=== PATIENT | female | born 1950 | race Caucasian/White ===

== ENCOUNTER 2024-06-24 12:04 | Outpatient (AMB) | payer BC, SELFPAY ==
--- NOTE | 2024-06-24 12:08 | MHC.PC.OV ---
Vital Signs 06/24/24 12:12 Height 4 ft 11.45 in Weight 166 lb BMI 33.0 BP 146/82 H Blood Pressure Location Lt brachial Position Sitting Intake Visit Reasons: establish care Vp Scientific Affairs Required: No Accompanied by: Self / Same As Patient Allergies statins Adverse Reaction (Unknown, Uncoded 06/24/24 12:23) unknown Medication List - Last Reconciled 06/24/24 by Emilia Montero MD No Known Home Meds Tobacco use date assessed: 06/24/24 Fall risk assessment: No Falls in past year Last assessed Fall Risk: 06/24/24 Dental Screening Dental Screen Date: 06/24/24 Did you have a dental visit in the last 12 months?: Yes Did you have a dental problem in the last 6 months where you did not have access to dental care?: No Was dental information given to patient?: Patient has dentist HPI HPI Comments History of Present Illness Details This is a 74-year-old female that comes to establish care. She has mild recurrent major depression, anxiety and PTSD but declines having any treatment including counseling. Also has right hearing loss and chronic sinusitis and would like to see ENT. She is obese with a BMI of 33 and was advised to do diet and exercise. Has history of pure hypercholesterolemia but has had side effect with statins and preferred to do diet. Declines mammogram. Had colonoscopy in 2008 and had Cologuard last year which was negative. Up-to-date with vaccines. Has a murmur and will have echocardiogram done. [facility] Surgical History History of cataract surgery Family History Mother No problems noted. Father No problems noted. Brother CAD (coronary artery disease) Sister CHF (congestive heart failure) Social History Housing: House Alcohol intake: current Alcohol intake frequency: 0-2 drinks per day Alcohol type: wine Patient Tobacco Use Status: Never used Tobacco e-Cigarette/Vaping Use: Never Used Second Hand Smoke Exposure: No service: No Current occupational status: retired and disabled Cognitive needs: No Hearing needs: No Vision needs: No Questionnaire PHQ-9 Over the last 2 weeks, how often have you been bothered by any of the following problems? 1. Little interest or pleasure in doing things: several days 2. Feeling down, depressed, or hopeless: more than half the days 3. Trouble falling or staying asleep, or sleeping too much: not at all 4. Feeling tired or having little energy: several days 5. Poor appetite or overeating: not at all 6. Feeling bad about yourself - or that you are a failure or have let yourself or your family down: not at all 7. Trouble concentrating on things, such as reading the newspaper or watching television: not at all 8. Moving or speaking so slowly that other people could have noticed. Or the opposite - being so fidgety or restless that you have been moving around a lot more than usual: not at all 9. Thoughts that you would be better off or of hurting yourself in some way: not at all Total score: 4 Depression Screening Interpretation: Positive Depression Screening Follow-up: Existing condition and Follow-up Visit Requested Depression Screening Done: Yes 61101 - PHQ-9 Billing: Yes Source: Developed by Drs. Aj Madsen, Kiara Irene, Gaurav Butler and colleagues, with an educational mavis from [employer]. Thrive Questionnaire Date Thrive assessed: 06/24/24 I am a: Patient What is your living situation today?: I have a steady place to live Within the past 12 months, did the food you bought not last and you didn't have the money to get more?: Never true Within the past 12 months, did you worry whether your food would run out before you got money to buy more?: Never true Do you have trouble paying for medicines?: No Do you have trouble getting transportation to medical appointments?: No Do you have trouble paying your heating and electricity bill?: No Do you have trouble taking care of your child, family member or friend?: No Do you have trouble with day-to-day activities such as bathing, preparing meals, shopping, managing finances, etc.?: No Are you currently unemployed and looking for a job?: No Are you interested in more education?: No Please select the resources that you would like help with: None Currently or been in a relationship where the following occur: No concerns reported and I choose not to answer THRIVE Score: 0 AUDIT C Alcohol Use Questionnaire (AUDIT-C) 1. How often do you have a drink containing alcohol?: Never Total Score: 0 Score Reviewed/Action Taken: No NELI-7 AMB Questionnaire NELI-7 Date NELI - 7 assessed: 06/24/24 Feeling nervous, anxious, or on edge: 1 = Several days Not being able to stop or control worryin = Not at all Worrying too much about different things: 1 = Several days Trouble relaxin = Not at all Being so restless that it is hard to sit still: 0 = Not at all Becoming easily annoyed or irritable: 0 = Not at all Feeling afraid as if something awful might happen: 0 = Not at all Total NELI-7 score (0-4 normal; 5-9 mild; 10-14 moderate; 15-21 severe): 2 Source: Developed by Drs. Aj Madsen, Kiara Irene, Gaurav Butler and colleagues, with an educational mavis from [employer]. NELI-7 Assessment Billing NELI-7 Assessment Tool: NELI-7 Assessment 28480 Review of Systems Const All systems reviewed & are unremarkable except as noted in HPI and below Card Denies chest pain at rest, Denies chest pain with activity, Denies edema, Denies irregular heart rhythm, Denies claudication, Denies dyspnea, Denies dyspnea on exertion, Denies orthopnea, Denies paroxysmal nocturnal dyspnea and Denies slow heart rate Resp Denies cough, Denies dyspnea and Denies dyspnea on exertion GI Denies abdominal pain, Denies change in bowel habits, Denies excessive flatus, Denies nausea and Denies vomiting Denies urinary incontinence, Denies urinary hesitancy and Denies urinary urgency Musc Denies atrophy, Denies deformity and Denies limited range of motion Skin/Breast Denies bleeding lesions, Denies changing lesions and Denies rash Physical exam (Primary Care) Vital Signs: Last Vital Signs BP 146/82 H 06/24/24 12:12 BMI result Body Mass Index 33.0 BMI Assessment/Plan discussion: High BMI High, discussed plan: lifestyle, weight reduction, dietary and physical activity Tobacco/Smoking Status: Tobacco use Status Tobacco use date assessed 06/24/24 06/24/24 12:20 Patient Tobacco Use Status Never used Tobacco 06/24/24 12:20 e-Cigarette/Vaping Use Never Used 06/24/24 12:20 PHQ-9: PHQ-9 Score PHQ-9: Total score 4 06/24/24 12:20 Depression Screening Interpretation: Positive Depression Screening Follow-up: Existing condition and Follow-up Visit Requested Thrive Assessment: Date of Thrive Assessment Date Thrive assessed 06/24/24 06/24/24 12:20 Currently or been in a relationship where the following occur: No concerns reported and I choose not to answer Resp Effort & Inspection: normal respiratory effort Auscultation: clear to auscultation bilaterally Cardio Jugular venous distension: no JVD Rate: regular rate Rhythm: regular rhythm Heart sounds: S1 normal heart sound present and S2 normal heart sound present Extrem General: Yes full ROM Coding Level of Care Code New Pt Level 4 (71087) Complex EM visit Add On G2211 Diagnoses Murmur R01.1 Chronic sinusitis J32.9 Hearing loss, right H91.91 NELI (generalized anxiety disorder) F41.1 Mild recurrent major depression F33.0 PTSD (post-traumatic stress disorder) F43.10 Pure hypercholesterolemia E78.00 Additional Codes PHQ-9 - 87000 - PHQ-9 Billing: Yes ([id number]) NELI-7 Assessment Billing - NELI-7 Assessment Tool: NELI-7 Assessment 94273 ([id number]) Time Spent (min) 25 Assessment & Plan Assessment & Plan (1) Murmur: Code(s): R01.1 - Cardiac murmur, unspecified Category: Medical (2) Chronic sinusitis: Code(s): J32.9 - Chronic sinusitis, unspecified Category: Medical (3) Hearing loss, right: Code(s): H91.91 - Unspecified hearing loss, right ear Category: Medical (4) NELI (generalized anxiety disorder): Code(s): F41.1 - Generalized anxiety disorder Category: Medical (5) Mild recurrent major depression: Code(s): F33.0 - Major depressive disorder, recurrent, mild Category: Medical (6) PTSD (post-traumatic stress disorder): Code(s): F43.10 - Post-traumatic stress disorder, unspecified Category: Medical (7) Pure hypercholesterolemia: Code(s): E78.00 - Pure hypercholesterolemia, unspecified Category: Medical Plan Fasting labs ordered to check cholesterol. DEXA scan order to rule out osteoporosis. Echocardiogram ordered for the murmur. Referred to ENT due to chronic sinusitis. Orders: Orders XR DEXA axial skeleton Today Z78.0 - Asymptomatic menopausal state Comprehensive [place]. Panel Fast Today E78.00 - Pure hypercholesterolemia, unspecified Lipid Panel Today E78.00 - Pure hypercholesterolemia, unspecified, E78.5 - Hyperlipidemia, unspecified CA echo transthoracic complete Today R01.1 - Cardiac murmur, unspecified Referrals Ear/Nose/Throat Referral H91.91 - Unspecified hearing loss, right ear, J32.9 - Chronic sinusitis, unspecified
[2024-06-24 12:12] VITALS: BP 146/82; BMI 33.0
--- OUTSIDE RECORDS SUMMARY | 2024-06-24 12:40 | XMS_ITS | Clinical Summary ---
Author Organization [facility] Address [address] [place] [address] Care Team Providers Care Product Marketing Programs Manager Name Role Phone Renita Song DO Primary Care Provider [phone] Allergies Active Allergy Reactions Criticality Noted Date Comments Cottonseed Unknown Ymdhylg-Kzo-Qlw Reductase Inhibitors Dizziness 08/23/2018 Medications aspirin 325 mg tablet PATIENT ON HER OWN TAKES ONE IN AM AND ONE IN PM NEEDED. Active multivitamin (THERAGRAN) tablet Take 1 tablet by mouth daily. 7 Active diclofenac (VOLTAREN) 1% gel diclofenac 1 % topical gel USE DAILY NEEDED Active glucosamine-ch ondroitin 500-400 mg tablet Glucosamine TABS Refills: 0 Active Active ibuprofen (MOTRIN) 800 mg tablet every 8 (eight) hours. Active diclofenac (VOLTAREN) 1% gel USE DAILY NEEDED 2 9 Active FLUAD 6870-1269, 65 YR UP,,PF, injection TO BE ADMINISTERED BY PHARMACIST FOR IMMUNIZATION 0 9 Active ibuprofen (MOTRIN) 800 mg tablet Take 800 mg by mouth 3 times a day. 4 8 Active simvastatin (ZOCOR) 10 mg tablet daily. Active azithromycin (ZITHROMAX) 500 mg tablet daily. Active carbamide peroxide (Debrox) 6.5% otic solution Debrox 6.5 % ear drops INSTILL 5 DROPS INTO AFFECTED EAR(S) BY OTIC ROUTE 2 TIMES PER DAY Active Flowflex COVID-19 Ag Home Test kit REFER TO [employer] INSCRUTIONS INCLUDED IN PACKAGING 2 Active erythromycin (ILOTYCIN) 0.5% ophthalmic ointment erythromycin 5 mg/gram (0.5 %) eye ointment APPLY 1 CM RIBBON INTO THE LOWER CONJUNCTIVAL SAC(S) IN THE AFFECTED EYE(S) BY OPHTHALMIC ROUTE 3 TIMES PER DAY FOR 7 DAYS Active neomycin-polym yxin B-hydrocortiso ne (CORTISPORIN) 3.5-10,000-1 mg/mL-unit/mL- % otic suspension neomycin-polymyxi n-hydrocort 3.5 mg-10,000 unit/mL-1 % ear drops,susp INSTILL 4 DROPS INTO AFFECTED EAR(S) BY OTIC ROUTE 3 TIMES PER DAY Active triamcinolone acetonide (KENALOG) 0.1% cream triamcinolone acetonide 0.1 % topical cream APPLY A THIN LAYER TO THE AFFECTED AREA(S) BY TOPICAL ROUTE 2 TIMES PER DAY Active Active Problems Problem Noted Date Diagnosed Date Cataract, nuclear sclerotic, both eyes 9 Myopia of both eyes with astigmatism and presbyo miguel 08/23/2018 Dry eyes, bilateral 08/23/2018 Left foot pain 05/12/2016 Hammertoe 05/12/2016 Corns and callosities 05/12/2016 History of pain when walking 05/12/2016 Complete tear of right rotator cuff 12/15/2014 Pain in joint of right shoulder 10/13/2014 Tendinitis of right rotator cuff 05/29/2014 Impacted cerumen of right ear 03/18/2013 Chronic rhinitis 03/18/2013 Lower back pain 02/12/2013 Hyperlipidemia 02/12/2013 Depression 02/12/2013 Post-traumatic stress disorder 02/12/2013 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 Immunizations Immunization Administration Dates Next Due COVID-19, Moderna, mRNA, LNP -S, Bivalent Booster, PF 11/17/2021 Covid-19 Monovalent Vaccine, Moderna, mRNA, PF 05/24/2021 Hepatitis A Vaccine, Adult Dosage 07/26/2022, INFLUENZA, SPLIT VIRUS, TRIVALENT, PF 01/27/2015 ,11/21/2013,01/16/2013 Influenza, High Dose Seasona l, Preservative Free 12/04/2018,11/30/2016 Influenza, High Dose Seasona l, Quadrivalent PF 10/26/2021 10/26/2022 Influenza, Injectable, Quadr ivalent Preservative Free 11/07/2020 Influenza, Trivalent, Adjuvanted, PF 03/11/2018 Influenza, Trivalent, MDV, Injectable 12/15/2015 Pneumococcal Polysaccharide Vaccine, 23 Valent 02/03/2015,11/21/2013 Tetanus Toxoid, Reduced Diph theria Toxoid, and Acellular Pertussis Vaccine, Adsorbed 12/30/2021 Zoster Vaccine, Live 09/16/2016 Family History Medical History Relation Name Comments Other Father Family History of cardiac disorder Relation Name Status Comments Father Social History Tobacco Use Types Packs/Day Years Used Date Smoking Tobacco: Never Smokeless Tobacco: Never Tobacco Cessation:Counseling Given: Not Answered Comments:: Alcohol Use Standard Drinks/Week Comments Not Currently 0 (1 standard drink = 0.6 oz pur e alcohol) Comments Unknown Sex and Gender Information Value Date Recorded Sex Assigned at Female 01/02/2022 3:24 PM EST Legal Sex Female 12:06 AM EDT Gender Identity Female 01/02/2022 3:24 PM EST Sexual Orientation Choose not to disclose 2021 3:24 PM EST Occupation Industry Job Start Date Job End Date retired Not on file Not on file Not on file Last Filed Vital Signs Vital Sign Reading Time Taken Comments Blood Pressure 120/64 07/26/2022 1:05 PM EDT Pulse 86 07/26/2022 1:05 PM EDT Temperature 37.1 ??C (98.8 ??F) 07/26/2022 1:05 PM ED T Respiratory Rate 18 07/26/2022 1:05 PM EDT Oxygen Saturation 97% 07/26/2022 1:05 PM EDT Inhaled Oxygen Concentration - - Weight 78.6 kg (173 lb 3.2 oz) 01/03/2022 1:21 P M EST Height 152.4 cm (5') 01/03/2022 1:21 PM EST Body Mass Index 33.83 01/03/2022 1:21 PM EST Plan of Treatment Health Maintenance Due Date Last Done Comments Cologuard 1950 Colon Cancer Screening 1950 Colonoscopy 1950 FOBT / Fit Test 1950 Hepatitis C Screening 1950 Sigmoidoscopy 1950 Mammogram 1990 Osteoporosis Screening 2000 Pneumococcal Vaccine: 50+ Years (2 of 2 - PCV) 02/04/2016 02/03/2015, 11/21/2013 Zoster Vaccines (2 of 3) 11/11/2016 09/16/2016 COVID-19 Vaccine ( season) 2023 11/17/2021, 05/24/2021, 12/17/2020, Additional history exists Alcohol/Substance Use Screening 02/14/2024 Depression Screening and Follow-Up 02/14/2024 Health Care Proxy Review 02/14/2024 Social Drivers of Health Annual Screening 02/14/2024 Influenza Vaccine (Season Ended) 2024 10/26/2021, 11/07/2020, 12/04/2018, Additional history exists RSV Vaccine (60+ years old and patients) (1 - 1-dose 75+ series) 2025 DTaP,Tdap,and Td Vaccines (2 - Td or Tdap) 12/31/2031 12/30/2021 Hepatitis B Vaccines Aged Out No long er eligible based on patient's age to complete this topic Insurance [facility] [employer] Care Teams Product Marketing Programs Manager Relationship Specialty Start Date End Date Renita Song DO PCP - General 09/01/16
--- OUTSIDE RECORDS SUMMARY | 2024-06-24 12:40 | XMS_ITS | Data Portability ---
Author Organization [facility], , [facility] Address [address], [place] Assessment No assessment recorded. Plan of Treatment Reminders Order Date Submit Date Provider Last Modified By Organization Details Last Modified Time Details Appointments None recorded. Lab AST/SGOT (aspartate aminotransf erase), serum or plasma 2022 023 [employer] [facility], [address] [place] [address], [id number], 4 02:19:49 ALT (alanine aminotransf erase), serum or plasma 2022 023 [employer] [facility], [address] [place] [address], [id number], 4 02:19:50 lipid panel, serum 2022 023 [employer] [facility], [address] [place] [address], [id number], 4 02:19:47 urinalysis, complete 2022 023 [employer] [facility], [address] [place] [address], [id number], 4 02:19:52 BMP, serum or plasma 2022 023 [employer] [facility], [address] [place] [address], [id number], 4 02:19:48 CBC w/ auto diff 2022 023 [facility], [address] [facility], [facility], [place], [phone], 4 02:19:51 Referral ophthalmolo gist referral 2022 023 [facility] Not available 4 05:01:34 Procedures None recorded. Surgeries None recorded. Imaging electrocard iogram 2023 024 [facility] In-Office Order, Internal Use Only DO Not Attach Compendium DO Not Attach Compendium, Do Not Delete/merge, [id number] 4 05:01:51 Medication Orders azithromyci n 500 mg tablet 2022 023 [id number], [address] [facility], [place], [address], 3 15:21:25 Patient TargetsNo targets recorded. Patient Instructions Encounter Date Encounter Id Patient Instructions Last Modified By Organization Details Last Modified Time 04/11/2022 [id number] chronic cough: care instructions dtrister Not available 04/11/2022 17:02:18 sore throat: car e instructions dtrister Not available 04/11/2022 17:02:18 Take medications as prescribed.Follow recommended diet.Contact office at [phone] if any problems develop. dtrister Not available 04/11/2022 17:02:22 Renita Santos DO, spend total time of 20 minutes performing the following: preparing to see the patient by review of diagnostic, consultative, imaging findings and or other external records as applicable. Reviewing separately obtained medical history. I explained to patient the nature of reported problems, examination findings including detail risk and benefits of interventions possible treatment(s), care instructions and or goals as indicated above. ,The patient was forewarned about common adverse affects of medications, possible drug and food interactions. Patient was advised to take medications as prescribed. The patient will contact me at [phone] if any symptoms or problems should occur.In the case of significant deterioration of the health contact 911. dtrister Not available 04/11/2022 17:03:01 07/26/2022 [id number] Take medications as prescribed.Follow recommended diet.Contact office at [phone] if any problems develop. dtrister Not available 07/26/2022 15:56:59 Renita Santos DO, spend total time of 20 minutes performing the following: preparing to see the patient by review of diagnostic, consultative, imaging findings and or other external records as applicable. Reviewing separately obtained medical history. I explained to patient the nature of reported problems, examination findings including detail risk and benefits of interventions possible treatment(s), care instructions and or goals as indicated above. ,The patient was forewarned about common adverse affects of medications, possible drug and food interactions. Patient was advised to take medications as prescribed. The patient will contact me at [phone] if any symptoms or problems should occur.In the case of significant deterioration of the health contact 911. dtrister Not available 07/26/2022 15:57:49 09/20/2022 [id number] Take medications as prescribed.Follow recommended diet.Contact office at [phone] if any problems develop. dtrister Not available 09/20/2022 14:59:05 Renita Santos DO, spend total time of 30 minutes performing the following: preparing to see the patient by review of diagnostic, consultative, imaging findings and or other external records as applicable. Reviewing separately obtained medical history. I explained to patient the nature of reported problems, examination findings including detail risk and benefits of interventions possible treatment(s), care instructions and or goals as indicated above. ,The patient was forewarned about common adverse affects of medications, possible drug and food interactions. Patient was advised to take medications as prescribed. The patient will contact me at [phone] if any symptoms or problems should occur.In the case of significant deterioration of the health contact 911. dtrister Not available 09/20/2022 15:04:07 11/22/2022 [id number] reduced vision: care instructions jtrister Not available 11/22/2022 22:24:02 Domingo Santos spent total time of 20 minutes on the date of encounter, which included: Preparing to see the patient (e.g., review of test results); Obtaining and/or reviewing separately obtained history Performing medically appropriate exam and /or evaluation Counseling and educating the patient and or family/caregiver Ordering medications, tests and or procedures Referring and or communicating with other healthcare professionals Documenting clinical information in the health record. Risk and benefits of these interventions were discussed with patient in details.Patient understand all issues discussed during this visit. Patient understand actions advised during this visit:diagnostic tests and options for treatment(s). The patient was forewarned about common adverse effects of medications, possible drug and food interactions. Patient was advised to take medications as prescribed. The patient will contact me at [phone] if any symptoms or problems should occur.In the case of significant deterioration of the health contact 911. jtrister Not available 11/30/2022 10:40:20 04/10/2023 [id number] Take medications as prescribed.Follow recommended diet.Contact office at [phone] if any problems develop. dtrister Not available 04/10/2023 13:38:09 IRenita DO, spend total time of 20 minutes performing the following: preparing to see the patient by review of diagnostic, consultative, imaging findings and or other external records as applicable. Reviewing separately obtained medical history. I explained to patient the nature of reported problems, examination findings including detail risk and benefits of interventions possible treatment(s), care instructions and or goals as indicated above. ,The patient was forewarned about common adverse affects of medications, possible drug and food interactions. Patient was advised to take medications as prescribed. The patient will contact me at [phone] if any symptoms or problems should occur.In the case of significant deterioration of the health contact 911. dtrister Not available 04/10/2023 13:38:41 Reason for Referral White Kid Buffer Referral for Abnormal vision Referring Physician: Domingo Song, Internal Medicine, Encounter Date: 11/22/2022 Results Created Date Observation Date Name Description Value Unit Range Abnormal Flag Note LastModifiedBy Organization Detail LastModifiedTime 03/09/19 24 03/10/2023 LIPID PANEL , STAND JOHNATHAN cholesterol, total 260 mg/dL <200 high Not Available [facility] [address], [place], [address], 03/10/2023 02:19:43 03/09/19 24 03/10/2023 LIPID PANEL , STAND JOHNATHAN HDL cholesterol 63 mg/dL > or = 50 normal Not Available [facility] [place] [facility] [address] [place], [place], [address], 03/10/2023 02:19:43 03/09/19 24 03/10/2023 LIPID PANEL , STAND JOHNATHAN triglyceride s 103 mg/dL <150 normal Not Available [facility] [place] [facility] [address], [place], [address], 03/10/2023 02:19:43 03/09/19 24 03/10/2023 LIPID PANEL , STAND JOHNATHAN LDL-choleste rol 175 mg/dL _(alpesh c) high Refer ence range : <100 Tyra able range <100 mg/dL for prima ry preve ntion ; <70 mg/dL for patie nts with CHD or diabe tic patie nts with > or = 2 CHD risk facto rs. LDL-C is now calcu lated using the Nuvia n-Hop kins calcu tito n, which is a valid ated novel metho d janene lite r accur acy than the Fried sean equat ion in the estim ation of LDL-C . Nuvia BILLINGS et al. VIOLET. 2013; 310(1 9): 2061- 2068 (http ://ed ucati on.Qu Ganesh [employer]. com/f aq/FA Q164) Not Available [facility] [place] [facility] [address] [place], [place], [address], 03/10/2023 02:19:43 03/09/19 24 03/10/2023 LIPID PANEL , STAND JOHNATHAN chol/HDLC ratio 4.1 (calc ) <5.0 normal Not Available [facility] [address], [place], [address], 03/10/2023 02:19:43 03/09/19 24 03/10/2023 LIPID PANEL , STAND JOHNATHAN non HDL cholesterol 197 mg/dL _(alpesh c) <130 high For patie nts with diabe mikki plus 1 major ASCVD risk facto r, treat ing to a non-H DL-C goal of <100 mg/dL (LDL- C of <70 mg/dL ) is consi jose eduardo a quin martines c optio n. Not Available [facility] [place] [facility] [address], [place], [address], 03/10/2023 02:19:43 03/09/1903/10/2023 LIPID PANEL , STAND JOHNATHAN copy(ies) sent to: [facility] N [address] [facility] [place] [phone] Not Available [facility] [place] [facility] [address], [place], [address], 03/10/2023 02:19:43 03/09/19 24 03/10/2023 BASIC METAB OLIC PANEL glucose 88 mg/dL 65-139 normal Non-f astin g refer ence inter rich Not Available [facility] [place] [facility] [address], [place], [address], 03/10/2023 02:19:48 03/09/1903/10/2023 BASIC METAB OLIC PANEL urea nitrogen (BUN) 11 mg/dL 7-25 normal Not Available [facility] [place] [facility] [address], [place], [address], 03/10/2023 02:19:48 03/09/19 24 03/10/2023 BASIC METAB OLIC PANEL creatinine 0.57 mg/dL 0.60-1 .00 low Not Available [facility] [address], [place], [address], 03/10/2023 02:19:48 03/09/19 24 03/10/2023 BASIC METAB OLIC PANEL eGFR 96 mL/mi n/1.7 3m2 > or = 60 normal Not Available [facility] [address], [place], [address], 03/10/2023 02:19:48 03/09/19 24 03/10/2023 BASIC METAB OLIC PANEL BUN/creatini ne ratio 19 (calc ) 6-22 normal Not Available [facility] [address], [place], [address], 03/10/2023 02:19:48 03/09/19 24 03/10/2023 BASIC METAB OLIC PANEL sodium 142 mmol/ L 135-14 6 normal Not Available [facility] [address], [place], [address], 03/10/2023 02:19:48 03/09/19 24 03/10/2023 BASIC METAB OLIC PANEL potassium 4.2 mmol/ L 3.5-5. 3 normal Not Available [facility] [address], [place], [address], 03/10/2023 02:19:48 03/09/19 24 03/10/2023 BASIC METAB OLIC PANEL chloride 102 mmol/ L 98-110 normal Not Available [facility] [address], [place], [address], 03/10/2023 02:19:48 03/09/19 24 03/10/2023 BASIC METAB OLIC PANEL carbon dioxide 33 mmol/ L 20-32 high Not Available [facility] [address], [place], [address], 03/10/2023 02:19:48 03/09/19 24 03/10/2023 BASIC METAB OLIC PANEL calcium 10.0 mg/dL 8.6-10 .4 normal Not Available [facility] [address], [place], [address], 03/10/2023 02:19:48 03/09/19 24 03/10/2023 BASIC METAB OLIC PANEL copy(ies) sent to: [facility] N [address] [place] [phone] Not Available [facility] [address], [place], [address], 03/10/2023 02:19:48 03/09/19 24 03/10/2023 AST AST 16 U/L 10-35 normal Not Available [facility] [address], [place], [address], 03/10/2023 02:19:49 03/09/19 24 03/10/2023 AST copy(ies) sent to: [facility] N [address] [facility] [place] [phone] Not Available [facility] [address], [place], [address], 03/10/2023 02:19:49 03/09/19 24 03/10/2023 ALT ALT 13 U/L 6-29 normal Not Available [facility] [address], [place], [address], 03/10/2023 02:19:50 03/09/19 24 03/10/2023 ALT copy(ies) sent to: [facility] N 200 [facility] [place], [place] [phone] Not Available [facility] [address], [place], [address], 03/10/2023 02:19:50 03/09/19 24 03/10/2023 CBC (INCL UDES DIFF/ PLT) white blood cell count 7.6 thous and/u L 3.8-10 .8 normal Not Available [facility] [address], [place], [address], 03/10/2023 02:19:51 03/09/19 24 03/10/2023 CBC (INCL UDES DIFF/ PLT) red blood cell count 4.29 donald on/uL 3.80-5 .10 normal Not Available [facility] [address], [place], [address], 03/10/2023 02:19:51 03/09/19 24 03/10/2023 CBC (INCL UDES DIFF/ PLT) hemoglobin 13.2 g/dL 11.7-1 5.5 normal Not Available [facility] [address], [place], [address], 03/10/2023 02:19:51 03/09/19 24 03/10/2023 CBC (INCL UDES DIFF/ PLT) hematocrit 38.9 % 35.0-4 5.0 normal Not Available [facility] [address], [place], [address], 03/10/2023 02:19:51 03/09/19 24 03/10/2023 CBC (INCL UDES DIFF/ PLT) MCV 90.7 fL 80.0-1 00.0 normal Not Available [facility] [address], [place], [address], 03/10/2023 02:19:51 03/09/19 24 03/10/2023 CBC (INCL UDES DIFF/ PLT) MCH 30.8 pg 27.0-3 3.0 normal Not Available [facility] [address], [place], [address], 03/10/2023 02:19:51 03/09/19 24 03/10/2023 CBC (INCL UDES DIFF/ PLT) MCHC 33.9 g/dL 32.0-3 6.0 normal Not Available [facility] [address], [place], [address], 03/10/2023 02:19:51 03/09/19 24 03/10/2023 CBC (INCL UDES DIFF/ PLT) RDW 13.0 % 11.0-1 5.0 normal Not Available [facility] [address], [place], [address], 03/10/2023 02:19:51 03/09/19 24 03/10/2023 CBC (INCL UDES DIFF/ PLT) platelet count 318 thous and/u L 140-40 0 normal Not Available [facility] [address], [place], [address], 03/10/2023 02:19:51 03/09/19 24 03/10/2023 CBC (INCL UDES DIFF/ PLT) MPV 10.6 fL 7.5-12 .5 normal Not Available [facility] [address], [place], [address], 03/10/2023 02:19:51 03/09/19 24 03/10/2023 CBC (INCL UDES DIFF/ PLT) absolute neutrophils 4461 cells /uL 1500-7 800 normal Not Available [facility] [address], [place], [address], 03/10/2023 02:19:51 03/09/19 24 03/10/2023 CBC (INCL UDES DIFF/ PLT) absolute lymphocytes 2523 cells /uL 850-39 00 normal Not Available [facility] [address], [place], [address], 03/10/2023 02:19:51 03/09/19 24 03/10/2023 CBC (INCL UDES DIFF/ PLT) absolute monocytes 456 cells /uL 200-95 0 normal Not Available [facility] [place] [facility] [address], [place], [address], 03/10/2023 02:19:51 03/09/19 24 03/10/2023 CBC (INCL UDES DIFF/ PLT) absolute eosinophils 106 cells /uL 15-500 normal Not Available [facility] [place] [facility] [address], [place], [address], 03/10/2023 02:19:51 03/09/19 24 03/10/2023 CBC (INCL UDES DIFF/ PLT) absolute basophils 53 cells /uL 0-200 normal Not Available [facility] [place] [facility] [address], [place], [address], 03/10/2023 02:19:51 03/09/19 24 03/10/2023 CBC (INCL UDES DIFF/ PLT) neutrophils 58.7 % normal Not Available [facility] [place] [facility] [address], [place], [address], 03/10/2023 02:19:51 03/09/19 24 03/10/2023 CBC (INCL UDES DIFF/ PLT) lymphocytes 33.2 % normal Not Available [facility] [place] [facility] [address], [place], [address], 03/10/2023 02:19:51 03/09/19 24 03/10/2023 CBC (INCL UDES DIFF/ PLT) monocytes 6.0 % normal Not Available [facility] [place] [facility] [address], [place], [address], 03/10/2023 02:19:51 03/09/19 24 03/10/2023 CBC (INCL UDES DIFF/ PLT) eosinophils 1.4 % normal Not Available [facility] [place] [facility] [address], [place], [address], 03/10/2023 02:19:51 03/09/19 24 03/10/2023 CBC (INCL UDES DIFF/ PLT) basophils 0.7 % normal Not Available [facility] [place] [facility] [address], [place], [address], 03/10/2023 02:19:51 03/09/19 24 03/10/2023 CBC (INCL UDES DIFF/ PLT) copy(ies) sent to: [facility] [address] [facility] [place] [phone] Not Available [facility] [address], [place], [address], 03/10/2023 02:19:51 03/09/19 24 03/10/2023 URINA LYSIS , COMPL ETE color YELLOW yellow normal Not Available [facility] [address], [place], [address], 03/10/2023 02:19:52 03/09/19 24 03/10/2023 URINA LYSIS , COMPL ETE appearance CLEAR clear normal Not Available [facility] [address], [place], [address], 03/10/2023 02:19:52 03/09/19 24 03/10/2023 URINA LYSIS , COMPL ETE specific gravity 1.016 1.001- 1.035 normal Not Available [facility] [place] [facility] [address], [place], [address], 03/10/2023 02:19:52 03/09/19 24 03/10/2023 URINA LYSIS , COMPL ETE pH 6.0 5.0-8. 0 normal Not Available [facility] [place] [facility] [address], [place], [address], 03/10/2023 02:19:52 03/09/19 24 03/10/2023 URINA LYSIS , COMPL ETE glucose NEGATI VE negati ve normal Not Available [facility] [place] [facility] [address], [place], [address], 03/10/2023 02:19:52 03/09/19 24 03/10/2023 URINA LYSIS , COMPL ETE bilirubin NEGATI VE negati ve normal Not Available [facility] [place] [facility] [address], [place], [address], 03/10/2023 02:19:52 03/09/19 24 03/10/2023 URINA LYSIS , COMPL ETE ketones NEGATI VE negati ve normal Not Available [facility] [place] [facility] [address], [place], [address], 03/10/2023 02:19:52 03/09/19 24 03/10/2023 URINA LYSIS , COMPL ETE occult blood NEGATI VE negati ve normal Not Available [facility] [place] [facility] [address], [place], [address], 03/10/2023 02:19:52 03/09/19 24 03/10/2023 URINA LYSIS , COMPL ETE protein NEGATI VE negati ve normal Not Available [facility] [place] [facility] [address], [place], [address], 03/10/2023 02:19:52 03/09/19 24 03/10/2023 URINA LYSIS , COMPL ETE nitrite NEGATI VE negati ve normal Not Available [facility] [place] [facility] [address], [place], [address], 03/10/2023 02:19:52 03/09/19 24 03/10/2023 URINA LYSIS , COMPL ETE leukocyte esterase NEGATI VE negati ve normal Not Available [facility] [place] [facility] [address], [place], [address], 03/10/2023 02:19:52 03/09/19 24 03/10/2023 URINA LYSIS , COMPL ETE WBC NONE SEEN /hpf < or = 5 normal Not Available [facility] [place] [facility] [address], [place], [address], 03/10/2023 02:19:52 03/09/19 24 03/10/2023 URINA LYSIS , COMPL ETE RBC NONE SEEN /hpf < or = 2 normal Not Available [facility] [place] [facility] [address], [place], [address], 03/10/2023 02:19:52 03/09/19 24 03/10/2023 URINA LYSIS , COMPL ETE squamous epithelial cells NONE SEEN /hpf < or = 5 normal Not Available [facility] [place] [facility] [address], [place], [address], 03/10/2023 02:19:52 03/09/19 24 03/10/2023 URINA LYSIS , COMPL ETE bacteria NONE SEEN /hpf none seen normal Not Available [facility] [place] [facility] [address], [place], [address], 03/10/2023 02:19:52 03/09/19 24 03/10/2023 URINA LYSIS , COMPL ETE hyaline cast NONE SEEN /lpf none seen normal Not Available [facility] [place] [facility] [address], [place], [address], 03/10/2023 02:19:52 03/09/19 24 03/10/2023 URINA LYSIS , COMPL ETE note This urine was felix zed for the prese nce of WBC, RBC, bacte jamie, casts , and other forme d eleme nts. Only those eleme nts seen were repor eleazar. Not Available [facility] [place] [facility] [address], [place], [address], 03/10/2023 02:19:52 03/09/19 24 03/10/2023 URINA LYSIS , COMPL ETE copy(ies) sent to: [facility] [address] [facility] [place] [phone] Not Available [facility] [place] [facility] [address], [place], [address], 03/10/2023 02:19:52 04/08/19 XR, chest , 2 view COMPAR RUDDY: 019 FINDIN GS AND IMPRES AIMEE: No change . Heart normal . Lungs clear. Slight elevat ion left hemidi aphrag m and azygos lobe as before . Otherw ise negati ve. If this radiol ogy report contai ns a blank impres aimee sectio n, it is an incomp lete radiol ogy report . Please contac t the interp reting radiol ogist or applic able radiol ogy divisi on as soon as possib le to obtain the comple eleazar interp retati on. Workst ation ID: [id number] P/here 11:34 [facility] [address] [place] [address] [address], [place], [address], 04/11/2022 16:52:30 04/08/19 23 04/08/2022 imagi ng/di agnos tic resul t No observ ation record ed. [facility] (Xrays Only) [address] [facility], [place], [address], 04/11/2022 16:52:30 04/10/19 24 elect delaney dominguez am No observ ation record ed. dtrister In-Office Order Internal Use Only DO Not Attach Compendium DO Not Attach Compendium, Do Not Delete/merge, [id number] 04/10/2023 13:27:19 04/10/19 24 04/10/2023 huang dominguez am No observ ation record ed. BARCODE Not Available 2023 13:46:51 Result Notes None recorded. 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 Completed 11/07/2018 PERNELL herrera [facility], 9 09:04:11 Transient cerebral ischemia 068542850 Completed 11/07/2018 [facility], 9 09:04:13 Heart murmur 21876984 Completed 11/07/2018 [facility]LL [facility]rera [facility], 9 09:04:26 Disorder of cholesterol metabolism 113937051 Completed 11/07/2018 [facility]LL herrera [facility], 9 09:04:06 Impacted cerumen 26604904 Completed 11/07/2018 PER[facility]LL herrera [facility], 9 09:04:09 Pain of shoulder region 14729560 Completed 11/07/2018 [facility]LL [facility]rera [facility], 9 09:04:22 Adult health examination Completed 201611/07/2018 PERNELL herrera [facility], 9 09:04:15 Mixed hyperlipide matthew [id number] Active 2019 Renita Moiarechiga [facility], 14:22:37 Problem Notes None recorded. Procedures Surgical History Date Name Laterality Status Provider Name and Address Organization Details Recorded Time 04/10/19 24 ECG completed Reid Santanada [facility], 04/10/2023 13:09:53 04/11/19 23 Rapid Strept Test completed [facility], 04/11/2022 17:00:55 12/31/19 22 Tetanus prophylaxis completed [facility], 12/30/2021 17:02:30 12/31/19 22 Intramuscular Injection completed [facility], 12/30/2021 17:02:19 08/24/19 22 ECG completed [facility], 08/23/2021 14:46:53 10/28/19 20 Flu vaccine Flucelvax Quad completed GITA LAND [facility], 10/28/2019 10:08:48 01/28/20 17 Rapid Strept Test completed Brinda Garza [facility], 01/27/2017 13:44:41 12/13/19 17 ECG completed [facility], 12/12/2016 20:06:38 04/22/19 17 PAP smear completed Rose Gillespie [facility], 04/21/2016 13:07:01 12/15/19 16 [facility] 10:38:52 12/15/19 16 Intramuscular Injection completed Shannon [facility], 12/15/2015 10:39:08 02/04/20 15 Pneumonia vaccine completed Aida Franco [facility], 02/03/2015 11:42:36 01/28/20 15 Flu vaccine Flucelvax Quad completed Renita Trister [facility], 01/27/2015 11:38:59 01/28/20 15 Cerumen Removal completed Renita Song [facility], 01/27/2015 11:38:45 12/16/19 09 Date of Last Colonoscopy completed Renita Song [facility], 01/01/2015 15:14:51 Caesarean Section completed Renita Faye r [facility], 01/01/2015 15:03:34 Orthopaedic Surgery completed Renita Song [facility], 01/01/2015 15:03:34 Imaging Results Imaging Date Name Status LastModified by Organization Details LastModified Time 04/08/2022 XR, chest, 2 view completed [facility] [address] [facility] [address], [place], [address], 04/11/2022 16:52:30 04/08/2022 imaging/diagnostic result active [facility] (Xrays Only) [address] [place], [address], 04/11/2022 16:52:30 04/10/2023 electrocardiogram active [facility] In-Offi ce Order Internal Use Only DO Not Attach Compendium DO Not Attach Compendium, Do Not Delete/merge, [id number] 04/10/2023 13:27:19 04/10/2023 electrocardiogram completed [facility] Informa tion not available 04/10/2023 13:46:51 Procedure Notes None recorded. Medical Equipment None Reported. Allergies Allergen ID Allergen Name Allergen Category Reaction Reaction Severity Criticality Documentation Date Start Date Code Code System Note Provider Name and Address Organization Details Recorded Time 70543 Product containin g 3-hydroxy -3-methyl glutaryl- coenzyme A reductase inhibitor (product) medicatio n Not available Not available Not available 01/27/2015 77690 009 SNOMED Renita Song javier [facility], 5 11:22:22 Medications Name Sig Start Date Stop Date Status Note LastModified by Organization Details LastModified Time Augmentin 875 mg-125 mg tablet Take 1 tablet twice a day by oral route for 7 days. 10/11 completed Not Available Not Available Not Available promethazin e-DM 6.25 mg-15 mg/5 mL oral syrup Take 5 mL every 6 hours by oral route for 15 days. 04/06 completed Not Available Not Available Not Available ibuprofen 800 mg tablet Take 1 tablet 3 times a day by oral route for 30 days. 11/07 completed Not Available Not Available Not Available Lidocaine Viscous 2 % mucosal solution Take 15 mL every 3 hours by oral route for 15 days. 04/06 completed Not Available Not Available Not Available simvastatin 10 mg tablet Take 1 tablet every day by oral route at bedtime for 30 days. 2014 active Not Available Not Available Not Avai lable Debrox 6.5 % ear drops INSTILL 5 DROPS INTO AFFECTED EAR(S) BY OTIC ROUTE 2 TIMES PER DAY 11/07 completed Not Available Not Available Not Available Zithromax 250 mg tablet TAKE 2 TABLETS (500 MG) BY ORAL ROUTE ONCE DAILY FOR 1 DAY THEN 1 TABLET (250 MG) BY ORAL ROUTE ONCE DAILY FOR 4 DAYS 03/03 completed Not Available Not Available Not Available Tylenol Arthritis Pain 650 mg tablet,exte nded release Take 1 tablet every 8 hours by oral route around the clock for 30 days. 04/21 completed Not Available Not Available Not Available penicillin V potassium 500 mg tablet Take 1 tablet 4 times a day by oral route for 10 days. 04/06 completed Not Available Not Available Not Available triamcinolo ne acetonide 0.1 % topical cream APPLY A THIN LAYER TO THE AFFECTED AREA(S) BY TOPICAL ROUTE 2 TIMES PER DAY 04/11 completed Not Available Not Available Not Available Tessalon Perles 100 mg capsule Take 1 capsule 3 times a day by oral route for 15 days. 04/06 completed Not Available Not Available Not Available erythromyci n 5 mg/gram (0.5 %) eye ointment APPLY 1 CM RIBBON INTO THE LOWER CONJUNCTI RICH SAC(S) IN THE AFFECTED EYE(S) BY OPHTHALMI C ROUTE 3 TIMES PER DAY FOR 7 DAYS 12/30 completed Not Available Not Available Not Available neomycin-po lymyxin-hyd rocort 3.5 mg-10,000 unit/mL-1 % ear drops,susp INSTILL 4 DROPS INTO AFFECTED EAR(S) BY OTIC ROUTE 3 TIMES PER DAY 11/07 completed Not Available Not Available Not Available azithromyci n 500 mg tablet Take 1 tablet every day by oral route for 3 days. 11/07 completed Not Available Not Available Not Available Chlorasepti c Throat Spearfish 1.4 % aerosol Take 1 spray by mucous route for 10 days. 04/06 completed Not Available Not Available Not Available diclofenac 1 % topical gel USE DAILY NEEDED 2020 active Not Available Not Available Not Alfredai whitney [facility] 10 billion cell-200 mg chewable tablet Take as directed on package 03/03 completed Not Available Not Available Not Available Vitals Date Recorded Body height Heart rate Body temperature Body mass index (BMI) Body weight Oxygen saturation Oxygen saturation in Arterial blood by Pulse oximetry Systolic blood pressure Diastolic blood pressure Provider Name and Address Organization Details Last Updated DateTime 3 149.86 cm 93 /min 98 [degF] 34.3 kg/m2 22105.3 4 g 94 % 94 % 130 mm[Hg] 74 mm[Hg] LAURA KAUFMAN [facility], 3 16:32:37 Date Recorded Body height Heart rate Body temperature Body mass index (BMI) Body weight Oxygen saturation Oxygen saturation in Arterial blood by Pulse oximetry Systolic blood pressure Diastolic blood pressure Provider Name and Address Organization Details Last Updated DateTime 3 149.86 cm 91 /min 97.4 [degF] 33.9 kg/m2 91579.5 2 g 97 % 97 % 138 mm[Hg] 92 mm[Hg] CRIS WU [facility], 3 15:19:10 Date Recorded Body height Heart rate Body temperature Body mass index (BMI) Body weight Oxygen saturation Oxygen saturation in Arterial blood by Pulse oximetry Systolic blood pressure Diastolic blood pressure Provider Name and Address Organization Details Last Updated DateTime 3 149.86 cm 87 /min 98.2 [degF] 33.4 kg/m2 39864.4 6 g 98 % 98 % 142 mm[Hg] 88 mm[Hg] CRIS WU [facility], 3 14:36:32 Date Recorded Systolic blood pressure Diastolic blood pressure Provider Name and Address Organization Details Last Updated DateTime 09/20/2022 120 mm[Hg] 70 mm[Hg] Renita Song [facility], 09/20/2022 15:04:37 Date Recorded Body height Heart rate Body temperature Body mass index (BMI) Body weight Oxygen saturation Oxygen saturation in Arterial blood by Pulse oximetry Systolic blood pressure Diastolic blood pressure Provider Name and Address Organization Details Last Updated DateTime 3 149.86 cm 81 /min 98 [degF] 33.1 kg/m2 14202.1 5 g 99 % 99 % 130 mm[Hg] 80 mm[Hg] LAURA RODRIGUEZDONADO [facility], 3 11:04:48 Date Recorded Body height Heart rate Body temperature Body mass index (BMI) Body weight Oxygen saturation Oxygen saturation in Arterial blood by Pulse oximetry Systolic blood pressure Diastolic blood pressure Provider Name and Address Organization Details Last Updated DateTime 4 149.86 cm 99 /min 98.1 [degF] 33.5 kg/m2 41409.3 3 g 97 % 97 % 132 mm[Hg] 80 mm[Hg] Reid Hernandezzada [facility], 4 13:09:26 Social History Question Answer Notes LastModified by Organizat ion Details LastModified Time Tobacco Smoking Status Never Smoker Not Available [facility] 11/29/2019 03:10:44 Have You Been To An Area Known To Be High Risk For COVID-19? No Information not available 06/01/2020 HAVE YOU HAD A RECENT FEVER OF >100.4 F No Information not available 06/01/2020 DO YOU HAVE SHORTNESS OF BREATH OR TROUBLE BREATHING No Information not available 06/01/2020 DO YOU HAVE DRY COUGH, RUNNY NOSE OR SORE THROAT No Information not available 06/01/2020 DO YOU HAVE CHILLS? No Information not available 06/01/2020 DO YOU HAVE MUSCLE PAIN, BODY ACHES? No Information not available 06/01/2020 DO YOU HAVE HEADACHE? No Information not available 06/01/2020 HAVE YOU RECENTLY LOST SENSE OF SMELL OR TASTE No Information not available 06/01/2020 DO YOU HAVE ONSET OF NAUSEA OR VOMITING? No Information not available 06/01/2020 HAVE YOU BEEN IN CONTACT WITH SOMEONE THAT TESTED POSITIVE FOR COVID19? No Information not available 06/01/2020 ARE YOU AWAITING COVID19 TEST RESULTS? No Information not available 06/01/2020 HAVE YOU TRAVELED OUTSIDE THE STATE OR COUNTRY IN THE PAST WEEKS? No Information not available 06/01/2020 Marital Status Informatio n not available 01/01/2015 What Was The Date Of Your Most Recent Tobacco Screening? 04/10/2023 Information not available 04/10/2023 How Many Children Do You Have? 1 [id number] Information not available 11/29/2019 How Much Tobacco Do You Smoke? No [id number] Information not available 11/29/2019 Sex: Female Functional Status Question Answer Note LastModified by Organizat ion Details LastModified Time What is your level of alcohol consumption? Moderate [id number] Information not available 11/29/2019 Do you or have you ever used smokeless tobacco? Never used smokeless tobacco [id number] Information not available 11/29/2019 What is your occupation? disability PTSD, arthriti s. [id number] Information not available 11/29/2019 Mental Status None recorded. Family History Relationship Description Onset Age of this Age Resolved Age Notes LastModified by Organization Details LastModified Time Maternal Grandmother Coronary arterioscler osis [email or web address] Not available 2014 13:04:09 Father Coronary artery bypass grafts x 4 [email or web address] Not available 02/04 13:04:09 Father Heart failure 98 [email or web address] Not available 2016 10:41:59 Brother Coronary artery bypass grafts x 5 jtrister Not available 02/04 13:04:09 Sister Cerebrovascu lar accident dtrister Not available 10:40:43 Sister Myocardial infarction 71 [email or web address] Not available 04/18 11:04:40 Son Viral hepatitis C dtrister Not available 10/2019 13:12:12 Mother Dementia 96 dtrister Not available 08/23/2021 14:15:49 Medical History Condition Response Coronary Artery Disease N Gout N Metabolic Syndrome N Bipolar disorder N Hyperthyroidism N Hyperipidemia N Hypothyroidism N Lung Disease N Depression N COPD N Pneumonia N Myofascial pain syndrome N TIA N Diabetes Mellutus type 1 N TMJ OA N Tobacco dependence N Headache (Migraines) N Knee OA N Alcoholism N Food sensitivity and intollerance N Valvular heart disease N Obesity N Cholecystitis N Diabetes Mellitus Type 2 N Cancer N Shoulder OA N Feet OA N Substance dependence N Skin disorder N Hepatitis alcoholic N Rheumatoid Arthritis N Hip OA N Schizophrenia N Fibromyalgia N Atrial fibrillation N Inflammatory bowel disease N Allergies/Hayfever N DVT/PE N Skin Infection N Heart Conditions N Anxiety N Hepatitis A N Somatic dysfunction N Back pain (lumbar OA) N Gluten sensitivity N Headache (Tension) N Acne N Hypertriglyceridemia N Lyme disease N Hepatitis C N Anemia N Anemia B-12 defficiency N Back pain (thoracic OA) N Venous insufficiency N Heart Attack ([place]) N Radiculopathy N Dyspepsia N Bleeding Disorder N CHF N Seizures/Epilepsy N Joints replacement N Ankle OA N Fingers OA N BPH N Wrist OA N Somatization N Carpal tunnel Syndrome N Urinary Tract Infection N CVA N Diverticulitis N Asthma N Hepatitis B N Neck (Cervical) OA N Peripheral Vascular Disease N Elbow joint pain N Sleep Disorder N GERD/Reflux N Neuropathy N Pulmonary Embolism N Peptic Ulcer disease N Hypertension N Osteoporosis N Gynecological History Statement/Question Response If Post Menopausal, Age at Menopause 46 Date of Last Colonoscopy 12/15/2008 Most Recent Mammogram Obstetrics History GPAL:G 0 P 0 0 0 0 Immunizations Vaccine Type Date Status Note Provider Nam e and Address Organization Details Recorded Time Influenza, split virus, trivalent, preservative 6 completed Not Available [facility] 03/02/2019 02:13:51 Tdap 2 completed Renita herrera [facility], 12/30/2021 16:53:58 Past Encounters Encounter ID Performer Location Encounter Start Date Encounter Closed Date Diagnosis/Indication Diagnosis SNOMED-CT Code Diagnosis ICD10 Code Diagnosis Note [id number] Renita Song DO [address] [address] 01/01/2015 14:43:12 01/01/2015 15:46:24 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 Disorder o f rotator cuff 795105674 M75.81 Low back pain 646883793 M54.5 Posttrauma tic stress disorder 22687634 F43.10 Transient cerebral ischemia 320221164 G45.9 Adult heal th examination 196485746 Z00.01 Heart murmur 32219743 R0 1.1 [id number] Renita Song DO [address] [address] 01/27/2015 10:39:12 01/27/2015 11:57:49 Disorder of cholesterol metabolism 258053616 E78.70 Impacted cerumen 9209170 6 H61.21 Administra tion of influenza vaccine 33045755 Z23 [facility] 70031318 M25.511 [id number] Renita Song [address] [address] 02/03/2015 11:05:17 02/03/2015 11:53:28 Active or passive immunization 549009408 Z23 [id number] [address] 12/15/2015 10:30:19 12/15/2015 10:40:41 Needs influenza immunization 814566039 Z23 [id number] Shu Salamanca NP [facility] [address] [place] [address] 02/12/2016 12:54:14 02/12/2016 14:05:29 Cough 05030446 R05 Upper resp iratory infection 76149361 J06.9 Diarrhea 62880680 R19.7 [id number] Shannon [address] [address] 03/03/2016 10:20:15 03/03/2016 10:59:19 Verruca vulgaris 04095174 B07.9 Foot pain 34787261 M79.6 72 see above, pain due to warts [id number] Renita Song DO [address] [address] 03/31/2016 10:25:37 03/31/2016 11:21:23 Adult health examination 123259360 Z00.00 declined mammo and colonoscop y Verruca plantaris 508120 08 B07.0 [id number] Shu Salamanca, [employer] [facility] [address] [place] [address] 04/21/2016 12:56:56 04/21/2016 13:32:35 Screening for malignant neoplasm of cervix 292385469 Z12.4 Gynecologi c examination 34767469 Z01.419 [id number] Renita Song DO [address] [address] 12/12/2016 11:24:28 12/12/2016 12:37:34 Chest pain 54206489 R07.9 Costal chondritis 024685 04 M94.0 [id number] Shannon Webb [address] [address] 01/27/2017 13:22:00 01/27/2017 13:54:26 Streptococcal sore throat 79667934 J02.0 [id number] Shannon Webb [address] [address] 02/10/2017 09:59:45 02/10/2017 11:10:34 Cough 76999982 R05 Stomatitis 98386203 K12. 1 follow up the dentist for oral exam, Dr sloan, [place] 9 [id number] Renita Song DO [address] [address] 04/06/2017 09:27:18 04/06/2017 10:50:03 Adult health examination 370584758 Z00.00 declined mammo and colonoscop y Depression screening 171 038982 Z13.89 Depressive disorder 3548 9007 F32.9 [id number] Renita Song [address] [address] 2018 10:51:16 2018 12:11:35 Adult health examination 319184486 Z00.00 declined mammo and colonoscop y Cataract 100354630 H26.9 Hearing loss 36043084 H9 1.90 [id number] Renita Song [address] [address] 10/01/2018 15:30:42 10/01/2018 16:00:51 Acute otitis media 7528355 H66.92 [id number] Renita Song DO [address] [address] 10/11/2018 10:25:33 10/11/2018 11:38:02 Acute otitis media 7441101 H66.92 Acute otitis externa 302 36881 H60.501 [id number] Domingo Song MD [address] [address] 10/22/2018 07:53:11 10/22/2018 08:20:17 Hearing loss 62830800 H91.91 Pain in throat 698805569 R07.0 [id number] Domingo Song MD [address] [address] 11/07/2018 09:00:29 11/07/2018 09:50:04 Traumatic effusion of joint of knee 057718586 M25.462 Contusion of chest 61183 004 S20.211A Contusion of finger of left hand 3240912339 9186161 S60.022A Shoulder joint pain 2679 13908 M25.519 [id number] Renitapresley PraterDO bill [address] [address] 04/22/2019 12:34:49 04/22/2019 16:00:13 Pain of right shoulder joint 6906352797 1500969 M25.511 Adult heal th examination 975150611 Z00.00 declined mammo and colonoscop y [id number] Renita Song [address] [address] 09/30/2019 13:42:30 10/09/2019 14:17:12 Mixed hyperlipidemia 242748037 E78.2 [id number] JONAH SANCHEZ [facility] [address] [place] [address] 10/28/2019 09:48:33 10/28/2019 10:00:41 Needs influenza immunization 777137885 Z23 [id number] JONAH SANCHEZ [facility] [address] [place] [address] 11/27/2019 16:00:31 11/29/2019 14:07:53 Blepharitis 79029060 H01.9 Most likely blephariti s. Will use erythromyc in ointment and follow up should this not resolve in 7 days. Educated pt about medication , side effects and DDIs. Did offer ophthalmol ogy referral but patient declined. [id number] Renita Song DO [place] [address] 04/27/2020 11:03:05 04/27/2020 11:35:50 Adult health examination 137821676 Z00.00 Chronic dermatitis 55700 007 L30.9 chronci unstable progressiv e [id number] JONAH SANCHEZ [address] [address] 06/01/2020 09:24:41 06/01/2020 09:56:34 Supraclavicular lymphadenopathy 679831937 R59.0 Acute, most likely due to immune response from COVID vaccine as this is listed as a side effect. However will order labs in conjunctio n with CBC, CMP from physical to ensure no acute abnormalit ies. F/u with US of neck. Educated patient about signs and symptoms in which to seek emergency medical attention or return for care. Emotional upset 60560242 5 R45.89 Acute, due to no sleep, lack of morning routine, nervous about lymphadeno sagar. Elevated BP. Advised to calm down. Will recheck BP at next office visit. Patient asymptomat ic. [id number] Renita Song [address] [address] 08/23/2021 13:03:56 08/23/2021 14:50:42 Adult health examination 751729014 Z00.00 Depressive disorder 3548 9007 F32.9 chronic unstablead vised to go to ER if develops thoughts and plans of self harm [id number] Renita Song DO [address] [address] 12/30/2021 16:06:44 12/30/2021 17:06:19 Requires a hepatitis A vaccination 922631865 Z28.39 Administra tion of diphtheria, pertussis, and tetanus vaccine 378288613 Z23 [id number] Renita Song DO [address] [address] 04/07/2022 08:41:48 04/07/2022 09:21:10 Chronic cough 03191236 R05.3 chronic unstableun like due to bacterial agent [id number] Renita Song DO [address] [address] 04/11/2022 15:52:13 04/11/2022 17:08:25 Acute pharyngitis 867742496 J02.9 acute unstablewa rm salt water gargletyle nol as needed Chronic cough 56232421 R 05.3 chronic stable improved w benzonatat e [id number] Renita PraterbillDO [address] [address] 07/26/2022 15:17:28 07/26/2022 16:13:18 Fracture of distal end of fibula 527177364 S82.891A acute stable improvedpt compliant with home exercises [id number] Renita Song DO [address] [address] 09/20/2022 14:18:13 09/20/2022 15:13:51 Adult health examination 500520941 Z00.00 Mixed hyperlipidemia 267 418750 E78.2 [id number] Domingo Song MD [address] [address] 11/22/2022 10:40:33 11/22/2022 11:49:18 Abnormal vision 2355039 H54.7 [id number] Renita Song DO [address] [address] 04/10/2023 12:37:27 04/10/2023 14:07:02 Cataract of right eye 363987185 H26.9 chronic unstableme dically optimized for surgery Pre-surger y evaluation 382200427 Z01.818 chronic unstableme dically optimized for surgery Health Concerns Section Related Observation LastModified by Organization Detai ls LastModified Time None Recorded Concern Status LastModified by Organization Details LastModified Time None Recorded Advance Directives Directive None Recorded Payers Encounter Date Sequence Insurance Name Policy Number Policy Summers Covered Member ID Summers Member ID Guarantor Name 04/11/2022 1 [facility] (MEDICARE REPLACEMENT/A DVANTAGE - PPO) [id number] Ro C Bal[employer] [id number] [employer] 07/26/2022 1 [facility] (MEDICARE REPLACEMENT/A DVANTAGE - PPO) [id number] Ro C Bal[employer] [id number] Ro C [employer] 09/20/2022 1 [facility] (MEDICARE REPLACEMENT/A DVANTAGE - PPO) [id number] Ro C Balcom [id number] Ro C Bal[employer] 11/22/2022 1 [facility] (MEDICARE REPLACEMENT/A DVANTAGE - PPO) [id number] Ro C Balcom [id number] Ro C Bal[employer] 04/10/2023 1 [facility] (MEDICARE REPLACEMENT/A DVANTAGE - PPO) [id number] Ro C Balcom [id number] [employer] C [employer] Notes Date Note Type Note Provider Name and Address Organization Details Recorded Time 04/11/2022 text/html CoughReported bypatient.Severity:imp roving; moderate Duration:constant; intermittent Timing:better; sudden Context:non-smoker;wor se at night Associated Symptoms:no fever; no chills; no wheezing;post nasal dripThroat PainReported bypatient.Location:[facility] Quality:sharp; aching; sore; stabbing; throbbing Severity:moderate Duration:1 day Onset/Timing:abrupt Aggravating Factors:yelling; talking Associated Symptoms:no stress; no coughing with sputum; no choking; no throat tickle/itch; no globus sensation; no odynophagia; no dysphagia; no burping; no hoarseness; no neck/shoulder muscle tension; no weight loss; no loss of appetite;fever one week ago patient fell down the stairs and hit her head on the buffetno LOC+ headache but mild and infrequent SIERRA Barragan Maria Isabel [facility], 04/11/2022 17:03:47 07/26/2022 text/html pt here to follo w up for a distal fibula fractureortho notes revieweds/p boot, and lace up bracestill reports limited ROM, stiffness and mild paresthesia of the 2,3,4th toes with slight discolorationshe is able to weight bare and ambulate SIERRA Barragan [facility], 07/26/2022 15:58:00 09/20/2022 text/html Annual Wellness VisitReported bypatient.Diet and Nutrition:healthy diet Fracture Risk:no history of fractures; no recent explained fracture; no sudden unexplained fractures; previous musculoskeletal injuries Physical Activity:exercises on a regular basis; recent increase in physical activity; good physical condition Depression Risk:never feels sad, empty, or tearful; no loss of interest in activities; no significant changes in weight; no sleep disturbances or insomnia; no agitation; no loss of energy; no feelings of worthlessness or guilt; no thoughts of suicide; no history of depression; no history of mood disorders Orientation:no disorientation to time; no disorientation to date; no disorientation to place Concentration and Memory:no decreased concentrating ability; no memory lapses or loss; does not forget words Speech/Motor difficulties:no speech difficulties; no difficulty expressing formulated concepts; no difficulty with fine manipulative tasks; no difficulty writing/copying; no slowed reaction time; does not knock things over when trying to pick them up Hearing:loss of hearing in one ear only Vision:no vision problems Activities of Daily Living:able to bathe with limited or no assistance; able to contol urination and bowels; able to dress with limited or no assistance; able to feed self with limited or no assistance; able to get out of chair or bedwith limited or no assistance; able to groom with limited or no assistance; able to toilet with limited or no assistance Instrumental Activities of Daily Living:able to do house work with limited or no assistance; able to grocery shop with limited or no assistance; able to manage medications with limited or no assistance; able to manage money with limited or no assistance; able to prepare meals with limited or no assistance; able to use the phone with limited or no assistance Falls Risk Assessment:no frequent falls while walking; no fall in the past year; no fall since last visit; no dizziness/vertigo Home Safety:no unsafe ashu hazzards; no unsafe stairs; no unsafe gas appliances; working smoke/CO detectors; wears protective head gear for biking/high velocity; use of seatbelts; practicing 'safer sex'; no vision or hearing loss while driving; no fire arms; has hand bars in the bathroom/shower; good lighting in the home [facility], 09/20/2022 15:04:54 11/22/2022 text/html Abnormal vision;History of cataract surgery Domingo Song MD [address] [place] [address], [phone], [facility] Isabel [facility] 11/30/2022 10:40:25 04/10/2023 text/html pt here for pre operative evaluation for cataract surgeryno previous adverse effects from anesthesiatoday pt denies chest pain, or shortness of breathlabs done and reviewed w pt [facility], 04/10/2023 13:38:44 OBGyn Episode No OBEpisode recorded.
--- OUTSIDE RECORDS SUMMARY | 2024-06-24 12:40 | XMS_ITS | Referral Summary ---
Author Organization [facility] Address [address] [place] [address] Care Team Providers Care Dining Car Waiter/Waitress Name Role Phone Renita Song DO Primary Care Provider [phone] Allergies Active Allergy Reactions Criticality Noted Date Comments Cottonseed Unknown Lrmvgdt-Ggm-Vaa Reductase Inhibitors Dizziness 08/23/2018 Medications aspirin 325 [...] USE DAILY NEEDED 2 9 Active FLUAD [id number], 65 YR UP,,PF, injection TO BE ADMINISTERED [...] COVID-19 Ag Home Test kit REFER TO MIXER OPERATOR VACUUM PAN SALT INSCRUTIONS INCLUDED IN PACKAGING 2 Active erythromycin [...] Vaccine, Adsorbed 12/30/2021 Zoster Vaccine, Live 09/16/2016 Social History Tobacco Use Types Packs/Day Years [...] 01/03/2022 1:21 PM EST Plan of Treatment Not on file Insurance [facility] [place] [id number] Care Teams Dining Car Waiter/Waitress Relationship Specialty Start Date End Date Duncan RenitaDO presley PCP - General 09/01/16
== END 2024-06-24 12:45 | disposition home or self-care (01) ==
PROVIDERS: PCP Internal Medicine; Visit Provider Internal Medicine
DX: R01.1 Cardiac murmur, unspecified (principal); J32.9 Chronic sinusitis, unspecified; H91.91 Unspecified hearing loss, right ear; F41.1 Generalized anxiety disorder; F33.0 Major depressive disorder, recurrent, mild; F43.10 Post-traumatic stress disorder, unspecified; E78.00 Pure hypercholesterolemia, unspecified

== ENCOUNTER → 2024-06-24 12:04 | Outpatient (BNVA) | payer BC, SELFPAY | PROVIDERS: PCP Internal Medicine; Visit Provider Internal Medicine | DX: Z76.89 Persons encountering health services in other specified circumstances (principal); R01.1 Cardiac murmur, unspecified; J32.9 Chronic sinusitis, unspecified; H91.91 Unspecified hearing loss, right ear; F41.1 Generalized anxiety disorder; F33.0 Major depressive disorder, recurrent, mild; F43.10 Post-traumatic stress disorder, unspecified; E78.00 Pure hypercholesterolemia, unspecified | CPT/HCPCS: 96127 ==

== ENCOUNTER 2024-07-25 13:31 | Outpatient (REF) | payer MEDICARE, SELFPAY ==
--- NOTE | ~2024-07-25 | MM_ITS ---
EXAMINATION: DXA BONE DENSITY AXIAL HISTORY: Z78.0 - Asymptomatic menopausal state TECHNIQUE: [employer] Dual energy absorptiometry (DEXA) of the lumbar spine, total left hip, and femoral neck was performed. COMPARISON: There are no prior studies for comparison. FINDINGS: The bone mineral density of the lumbar spine is 1.008, corresponding to a T-score of -1.3, and a Z-score of 0.2. This is indicative of osteopenia. The bone mineral density of the left total hip is 1.145, corresponding to a T-score of 1.1, and a Z-score of 2.6. This is indicative of normal bone mineral density. The bone mineral density of the left femoral neck is 1.158, corresponding to a T-score of 0.9, and a Z-score of 2.6. This is indicative of normal bone mineral density. FRACTURE RISK: The FRAX index suggests a risk of major osteoporotic fracture of 8.8%, and of hip fracture 0.4%. MM/XR DEXA axial skeleton IMPRESSION: Based on bone mineral density, and according to World Health Organization (WHO) criteria, the diagnosis is consistent with osteopenia. All bone density values are in grams per centimeter squared (g/cm2). Statistically, 68% of repeat scans fall within 1 SD (+/- 0.010 g/cm2 for AP spine L1-L4) and 1 SD (+/- 0.012 g/cm2 for femur total) FRAX is a trademark of the [employer] [place] [facility] Met[employer] Disease, a World Health Organization (WHO) Collaborating Center. Electronically signed by: Aj Francois MD 07/25/2024 02:46 PM EDT
--- NOTE | 2024-07-25 14:25 | CA_ITS ---
Transthoracic Echocardiogram Patient (Last, First, Middle): Ro Sheets, Gender: Female Date of : 1950 Age: 74 Procedure Date: 07/25/2024 Procedure Type: Transthoracic Echocardiogram Location: OP Height: 149.86 cm Weight: 75.3 kg BSA: 1.70 m2 Heart Rate: bpm BP: 146 / 82 mmHg Wet Roller: ANGEL Referring MD: Emilia Montero MD Baker Test: Kit Clayton MD Symptoms: R01.1 - Cardiac murmur, unspecified Study Quality: Technically Difficult ECG Rhythm: Sinus Conclusions: - 1. Normal LV ejection fraction of 60 65% with impaired relaxation filling pattern 2. Early mild aortic stenosis 3. No gross pericardial effusion Findings Left Ventricle Normal left ventricular size, thickness, and systolic function. The visually estimated ejection fraction is between 60-65%. Spectral Doppler is indicative of an impaired relaxation filling pattern. E/E prime ratio is between 8 and 15 consistent with indeterminate filling pressures. Right Ventricle The right ventricle was not well visualized. There is normal right ventricular systolic function. Atria The left atrium is normal in size. Interatrial shunt cannot be excluded. The right atrium was not well visualized. Aortic Valve The aortic valve was not well visualized. There is mild calcification of the aortic valve. There is mild aortic valve stenosis. The mean gradient is 6 mmHg. The aortic valve area is 1.85 cm2. There is no aortic valve regurgitation. Mitral Valve The mitral valve was not well visualized. There is trace mitral valve regurgitation. There is no mitral valve stenosis. Pulmonic Valve The pulmonic valve was not well visualized. Tricuspid Valve The tricuspid valve was not well visualized. Tricuspid regurgitation envelope is inadequate for calculation of right ventricular systolic pressure. Normal right atrial pressure. Great Vessels The aorta was not well visualized. The pulmonary artery was not well visualized. Venous The inferior vena cava is normal in size and collapses greater than 50% with inspiration. Pericardium/Pleural There is no evidence of pericardial effusion. Prior Study Comparison No prior study available for comparison. Measurements 2D Linear Measurements IVSd: 1.19 0.6-0.9/0.6-1.0 cm LVIDd: 3.71 3.9-5.3/4.2-5.9 cm LVIDd Index: 2.18 2.4-3.2/2.2-3.1 cm/m2 LVIDs: 2.93 2.0-3.6 cm LVPWd: 1.17 0.7-1.1 cm LA Diam: 3.40 2.7-3.8/3.0-4.0 cm LAIDs Index: 2.00 1.5-2.3 cm/m2 LV Mass: 179.49 67-162/88-224 g LV Mass Index: 105.58 43-95/49-115 g/m2 LVOT Diam: 2.00 3.0+(-)1.3 cm 2D Systolic Function EF 4C: 61.20 >55% EF 2C: 56.50 >55% EF BiP: 59.70 >55% Mitral Valve MV Pk E: 0.90 MV PK A: 0.90 MV Decel Time: 226.00 E/A: 1.00 E'Lateral: 6.53 E'Medial: 7.51 E/E' Med: 11.90 E/E' Lat: 13.70 PHT: 66.00 MVA PHT: 3.33 Decel [place]: 3.95 Aortic Valve AoV Pk Vinny: 1.67 AoV Mn Vinny: 1.17 AoV VTI: 0.36 AoV Pk Grad: 11.00 Aov Mn Grad: 6.00 GREGOR Cont.VTI: 1.85 LVOT LVOT Pk Vinny: 0.92 LVOT Mn Vinny: 0.66 LVOT VTI: 0.21 LVOT Pk Grad: 3.00 LVOT Mn Grad: 2.00 LVOT Diam: 2.00 LVOT Area: 3.14 Diastolic Function MV Pk E: 0.90 MV Pk A: 0.90 E/A: 1.00 E'Medial: 7.51 E/E' Med: 11.90 E' Laterial: 6.53 E/E' Lat: 13.70 Right Ventricle TAPSE (mm): 24.30 TVS' Vinny: 11.90 Tricuspid Valve RA Press: 3.00 Great Vessels Aorta Sinus of Valsalva: 2.86 2.0-3.[address] [place]: 2.06 1.7-3.4 cm Ao Asc: 3.50 2.1-3.4 cm Ao Arch: 2.90 Updated in Other Vendor System with Status of Final Kit Clayton MD electronically signed on 07/26/2024 1:51:42 PM with status of Final
--- OUTSIDE RECORDS SUMMARY | 2024-07-25 15:48 | XMS_ITS | Data Portability ---
Author Organization [facility], , [facility] Address [address] [place], [place] Assessment No assessment recorded. Plan of Treatment Reminders Order Date Submit Date Provider Last Modified By Organization Details Last Modified Time Details Appointments None recorded. Lab AST/SGOT (aspartate aminotransf erase), serum or plasma 2022 023 [facility], [address] [place] [address], [id number], 4 02:19:49 ALT (alanine aminotransf erase), serum or plasma 2022 023 [facility], [address] [place] [address], [id number], 4 02:19:50 lipid panel, serum 2022 023 [facility], [address] [place] [address], [id number], 4 02:19:47 urinalysis, complete 2022 023 [place] [facility], [address] [place] [address], [id number], 4 02:19:52 BMP, serum or plasma 2022 023 [place] [facility], [address] [place] [address], [id number], 4 02:19:48 CBC w/ auto diff 2022 023 LATR[facility], [address] [facility], [place], [phone], 4 02:19:51 Referral ophthalmolo gist referral 2022 023 LATR[facility] Not available 4 05:01:34 Procedures None recorded. Surgeries None recorded. Imaging electrocard iogram 2023 024 [facility] In-Office Order, Internal Use Only DO Not Attach Compendium DO Not Attach Compendium, Do Not Delete/merge, [id number] 4 05:01:51 Medication Orders azithromyci n 500 mg tablet 2022 023 LATR[id number], [address] [facility], [place], [address], 3 15:21:25 Patient TargetsNo targets recorded. Patient Instructions Encounter Date Encounter Id Patient Instructions Last Modified By Organization Details Last Modified Time 04/11/2022 [id number] chronic cough: care instructions dtrister Not available 04/11/2022 17:02:18 sore throat: car e instructions dtrister Not available 04/11/2022 17:02:18 Take medications as prescribed.Follow recommended diet.Contact office at [phone] if any problems develop. dtrister Not available [...] prescribed. The patient will contact me at [phone] if any symptoms or problems should occur.In the case of significant deterioration of the health contact 911. dtrister Not available 04/11/2022 17:03:01 07/26/2022 [id number] Take medications as prescribed.Follow recommended diet.Contact office at [phone] if any problems develop. dtrister Not available [...] prescribed. The patient will contact me at [phone] if any symptoms or problems should occur.In the case of significant deterioration of the health contact 911. dtrister Not available 07/26/2022 15:57:49 09/20/2022 [id number] Take medications as prescribed.Follow recommended diet.Contact office at [phone] if any problems develop. dtrister Not available [...] prescribed. The patient will contact me at [phone] if any symptoms or problems should occur.In the case of significant deterioration of the health contact 911. dtrister Not available 09/20/2022 15:04:07 11/22/2022 [id number] reduced vision: care instructions jtrister Not available [...] prescribed. The patient will contact me at [phone] if any symptoms or problems should occur.In the case of significant deterioration of the health contact 911. jtrister Not available 11/30/2022 10:40:20 04/10/2023 [id number] Take medications as prescribed.Follow recommended diet.Contact office at [phone] if any problems develop. dtrister Not available [...] prescribed. The patient will contact me at [phone] if any symptoms or problems should occur.In the case of significant deterioration of the health contact 911. 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 Referral for Abnormal vision Referring Physician: Domingo Song, Internal Medicine, Encounter Date: 11/22/2022 Results Created Date Observation Date Name Description Value Unit Range Abnormal Flag Note LastModifiedBy Organization Detail LastModifiedTime 03/09/19 24 03/10/2023 LIPID PANEL , STAND JOHNATHAN cholesterol, total 260 mg/dL <200 high Not Available [facility] [address], [place], [address], 03/10/2023 02:19:43 03/09/19 24 03/10/2023 LIPID PANEL , STAND JOHNATHAN HDL cholesterol 63 mg/dL > or = 50 normal Not Available [facility] [place] [facility] [address] [place], [place], [address], 03/10/2023 02:19:43 03/09/19 24 03/10/2023 LIPID PANEL , STAND JOHNATHAN triglyceride s 103 mg/dL <150 normal Not Available [facility] [place] [facility] [address], [place], [address], 03/10/2023 02:19:43 03/09/19 24 03/10/2023 LIPID PANEL [...] 2061- 2068 (http ://ed ucati on.Qu Ganesh Taltopia. com/f aq/FA Q164) Not Available [facility] [place] [facility] [address] [place], [place], [address], 03/10/2023 02:19:43 03/09/19 24 03/10/2023 LIPID PANEL , STAND JOHNATHAN chol/HDLC ratio 4.1 (calc ) <5.0 normal Not Available [facility] [address], [place], [address], 03/10/2023 02:19:43 03/09/19 24 03/10/2023 LIPID PANEL , STAND JOHNATHAN non HDL cholesterol 197 mg/dL _(alpesh c) <130 high For patie nts with diabe mikki plus 1 major ASCVD risk facto r, treat ing to a non-H DL-C goal of <100 mg/dL (LDL- C of <70 mg/dL ) is consi jose eduardo a quin martines c optio n. Not Available [facility] [place] [facility] [address], [place], [address], 03/10/2023 02:19:43 03/09/1903/10/2023 LIPID PANEL , STAND JOHNATHAN copy(ies) sent to: [facility] IPA MASTE R ACCOU N [address] [facility] [place] [address] Not Available [facility] [place] [facility] [address], [place], [address], 03/10/2023 02:19:43 03/09/19 24 03/10/2023 BASIC METAB OLIC PANEL glucose 88 mg/dL 65-139 normal Non-f astin g refer ence inter rich Not Available [facility] [place] [facility] [address], [place], [address], 03/10/2023 02:19:48 03/09/1903/10/2023 BASIC METAB OLIC PANEL urea nitrogen (BUN) 11 mg/dL 7-25 normal Not Available [facility] [place] [facility] [address], [place], [address], 03/10/2023 02:19:48 03/09/19 24 03/10/2023 BASIC METAB OLIC PANEL creatinine 0.57 mg/dL 0.60-1 .00 low Not Available [facility] [address], [place], [address], 03/10/2023 02:19:48 03/09/19 24 03/10/2023 BASIC METAB OLIC PANEL eGFR 96 mL/mi n/1.7 3m2 > or = 60 normal Not Available [facility] [address], [place], [address], 03/10/2023 02:19:48 03/09/19 24 03/10/2023 BASIC METAB OLIC PANEL BUN/creatini ne ratio 19 (calc ) 6-22 normal Not Available [facility] [address], [place], [address], 03/10/2023 02:19:48 03/09/19 24 03/10/2023 BASIC METAB OLIC PANEL sodium 142 mmol/ L 135-14 6 normal Not Available [facility] [address], [place], [address], 03/10/2023 02:19:48 03/09/19 24 03/10/2023 BASIC METAB OLIC PANEL potassium 4.2 mmol/ L 3.5-5. 3 normal Not Available [facility] [address], [place], [address], 03/10/2023 02:19:48 03/09/19 24 03/10/2023 BASIC METAB OLIC PANEL chloride 102 mmol/ L 98-110 normal Not Available [facility] [address], [place], [address], 03/10/2023 02:19:48 03/09/19 24 03/10/2023 BASIC METAB OLIC PANEL carbon dioxide 33 mmol/ L 20-32 high Not Available [facility] [address], [place], [address], 03/10/2023 02:19:48 03/09/19 24 03/10/2023 BASIC METAB OLIC PANEL calcium 10.0 mg/dL 8.6-10 .4 normal Not Available [facility] [address], [place], [address], 03/10/2023 02:19:48 03/09/19 24 03/10/2023 BASIC METAB OLIC PANEL copy(ies) sent to: [facility] IPA MASTE R ACCOU N [address] [place] [address] Not Available [facility] [address], [place], [address], 03/10/2023 02:19:48 03/09/19 24 03/10/2023 AST AST 16 U/L 10-35 normal Not Available [facility] [address], [place], [address], 03/10/2023 02:19:49 03/09/19 24 03/10/2023 AST copy(ies) sent to: [facility] IPA MASTE R ACCOU N 200 [facility] [address] Not Available [facility] [address], [place], [address], 03/10/2023 02:19:49 03/09/19 24 03/10/2023 ALT ALT 13 U/L 6-29 normal Not Available [facility] [address], [place], [address], 03/10/2023 02:19:50 03/09/19 24 03/10/2023 ALT copy(ies) sent to: [facility] IPA MASTE R ACCOU N 200 [facility] [place], [place] [phone] Not Available [facility] [address], [place], [address], 03/10/2023 02:19:50 03/09/19 24 03/10/2023 CBC (INCL UDES DIFF/ PLT) white blood cell count 7.6 thous and/u L 3.8-10 .8 normal Not Available [facility] [address], [place], [address], 03/10/2023 02:19:51 03/09/19 24 03/10/2023 CBC (INCL UDES DIFF/ PLT) red blood cell count 4.29 donald on/uL 3.80-5 .10 normal Not Available [facility] [address], [place], [address], 03/10/2023 02:19:51 03/09/19 24 03/10/2023 CBC (INCL UDES DIFF/ PLT) hemoglobin 13.2 g/dL 11.7-1 5.5 normal Not Available [facility] [address], [place], [address], 03/10/2023 02:19:51 03/09/19 24 03/10/2023 CBC (INCL UDES DIFF/ PLT) hematocrit 38.9 % 35.0-4 5.0 normal Not Available [facility] [address], [place], [address], 03/10/2023 02:19:51 03/09/19 24 03/10/2023 CBC (INCL UDES DIFF/ PLT) MCV 90.7 fL 80.0-1 00.0 normal Not Available [facility] [address], [place], [address], 03/10/2023 02:19:51 03/09/19 24 03/10/2023 CBC (INCL UDES DIFF/ PLT) MCH 30.8 pg 27.0-3 3.0 normal Not Available [facility] [address], [place], [address], 03/10/2023 02:19:51 03/09/19 24 03/10/2023 CBC (INCL UDES DIFF/ PLT) MCHC 33.9 g/dL 32.0-3 6.0 normal Not Available [facility] [address], [place], [address], 03/10/2023 02:19:51 03/09/19 24 03/10/2023 CBC (INCL UDES DIFF/ PLT) RDW 13.0 % 11.0-1 5.0 normal Not Available [facility] [address], [place], [address], 03/10/2023 02:19:51 03/09/19 24 03/10/2023 CBC (INCL UDES DIFF/ PLT) platelet count 318 thous and/u L 140-40 0 normal Not Available [facility] [address], [place], [address], 03/10/2023 02:19:51 03/09/19 24 03/10/2023 CBC (INCL UDES DIFF/ PLT) MPV 10.6 fL 7.5-12 .5 normal Not Available [facility] [address], [place], [address], 03/10/2023 02:19:51 03/09/19 24 03/10/2023 CBC (INCL UDES DIFF/ PLT) absolute neutrophils 4461 cells /uL 1500-7 800 normal Not Available [facility] [address], [place], [address], 03/10/2023 02:19:51 03/09/19 24 03/10/2023 CBC (INCL UDES DIFF/ PLT) absolute lymphocytes 2523 cells /uL 850-39 00 normal Not Available [facility] [address], [place], [address], 03/10/2023 02:19:51 03/09/19 24 03/10/2023 CBC (INCL UDES DIFF/ PLT) absolute monocytes 456 cells /uL 200-95 0 normal Not Available [facility] [place] [facility] [address], [place], [address], 03/10/2023 02:19:51 03/09/19 24 03/10/2023 CBC (INCL UDES DIFF/ PLT) absolute eosinophils 106 cells /uL 15-500 normal Not Available [facility] [place] [facility] [address], [place], [address], 03/10/2023 02:19:51 03/09/19 24 03/10/2023 CBC (INCL UDES DIFF/ PLT) absolute basophils 53 cells /uL 0-200 normal Not Available [facility] [place] [facility] [address], [place], [address], 03/10/2023 02:19:51 03/09/19 24 03/10/2023 CBC (INCL UDES DIFF/ PLT) neutrophils 58.7 % normal Not Available [facility] [place] [facility] [address], [place], [address], 03/10/2023 02:19:51 03/09/19 24 03/10/2023 CBC (INCL UDES DIFF/ PLT) lymphocytes 33.2 % normal Not Available [facility] [place] [facility] [address], [place], [address], 03/10/2023 02:19:51 03/09/19 24 03/10/2023 CBC (INCL UDES DIFF/ PLT) monocytes 6.0 % normal Not Available [facility] [place] [facility] [address], [place], [address], 03/10/2023 02:19:51 03/09/19 24 03/10/2023 CBC (INCL UDES DIFF/ PLT) eosinophils 1.4 % normal Not Available [facility] [place] [facility] [address], [place], [address], 03/10/2023 02:19:51 03/09/19 24 03/10/2023 CBC (INCL UDES DIFF/ PLT) basophils 0.7 % normal Not Available [facility] [place] [facility] [address], [place], [address], 03/10/2023 02:19:51 03/09/19 24 03/10/2023 CBC (INCL UDES DIFF/ PLT) copy(ies) sent to: JUSTUS CHAIREZ N 200 [facility] [phone] Not Available [facility] [address], [place], [address], 03/10/2023 02:19:51 03/09/19 24 03/10/2023 URINA LYSIS , COMPL ETE color YELLOW yellow normal Not Available [facility] [address], [place], [address], 03/10/2023 02:19:52 03/09/19 24 03/10/2023 URINA LYSIS , COMPL ETE appearance CLEAR clear normal Not Available [facility] [address], [place], [address], 03/10/2023 02:19:52 03/09/19 24 03/10/2023 URINA LYSIS , COMPL ETE specific gravity 1.016 1.001- 1.035 normal Not Available [facility] [place] [facility] [address], [place], [address], 03/10/2023 02:19:52 03/09/19 24 03/10/2023 URINA LYSIS , COMPL ETE pH 6.0 5.0-8. 0 normal Not Available [facility] [place] [facility] [address], [place], [address], 03/10/2023 02:19:52 03/09/19 24 03/10/2023 URINA LYSIS , COMPL ETE glucose NEGATI VE negati ve normal Not Available [facility] [place] [facility] [address], [place], [address], 03/10/2023 02:19:52 03/09/19 24 03/10/2023 URINA LYSIS , COMPL ETE bilirubin NEGATI VE negati ve normal Not Available [facility] [place] [facility] [address], [place], [address], 03/10/2023 02:19:52 03/09/19 24 03/10/2023 URINA LYSIS , COMPL ETE ketones NEGATI VE negati ve normal Not Available [facility] [place] [facility] [address], [place], [address], 03/10/2023 02:19:52 03/09/19 24 03/10/2023 URINA LYSIS , COMPL ETE occult blood NEGATI VE negati ve normal Not Available [facility] [place] [facility] [address], [place], [address], 03/10/2023 02:19:52 03/09/19 24 03/10/2023 URINA LYSIS , COMPL ETE protein NEGATI VE negati ve normal Not Available [facility] [place] [facility] [address], [place], [address], 03/10/2023 02:19:52 03/09/19 24 03/10/2023 URINA LYSIS , COMPL ETE nitrite NEGATI VE negati ve normal Not Available [facility] [place] [facility] [address], [place], [address], 03/10/2023 02:19:52 03/09/19 24 03/10/2023 URINA LYSIS , COMPL ETE leukocyte esterase NEGATI VE negati ve normal Not Available [facility] [place] [facility] [address], [place], [address], 03/10/2023 02:19:52 03/09/19 24 03/10/2023 URINA LYSIS , COMPL ETE WBC NONE SEEN /hpf < or = 5 normal Not Available [facility] [place] [facility] [address], [place], [address], 03/10/2023 02:19:52 03/09/19 24 03/10/2023 URINA LYSIS , COMPL ETE RBC NONE SEEN /hpf < or = 2 normal Not Available [facility] [place] [facility] [address], [place], [address], 03/10/2023 02:19:52 03/09/19 24 03/10/2023 URINA LYSIS , COMPL ETE squamous epithelial cells NONE SEEN /hpf < or = 5 normal Not Available [facility] [place] [facility] [address], [place], [address], 03/10/2023 02:19:52 03/09/19 24 03/10/2023 URINA LYSIS , COMPL ETE bacteria NONE SEEN /hpf none seen normal Not Available [facility] [place] [facility] [address], [place], [address], 03/10/2023 02:19:52 03/09/19 24 03/10/2023 URINA LYSIS , COMPL ETE hyaline cast NONE SEEN /lpf none seen normal Not Available [facility] [place] [facility] [address], [place], [address], 03/10/2023 02:19:52 03/09/19 24 03/10/2023 URINA LYSIS , COMPL ETE note This urine was felix zed for the prese nce of WBC, RBC, bacte jamie, casts , and other forme d eleme nts. Only those eleme nts seen were repor eleazar. Not Available [facility] [place] [facility] [address], [place], [address], 03/10/2023 02:19:52 03/09/19 24 03/10/2023 URINA LYSIS , COMPL ETE copy(ies) sent to: [facility] ACCOU N 200 [facility] [address] Not Available [facility] [place] [facility] [address], [place], [address], 03/10/2023 02:19:52 04/08/19 XR, chest , 2 [...] Workst ation ID: [id number] P/here 11:34 [facility] [address] [place] [address] [address], [place], [address], 04/11/2022 16:52:30 04/08/19 23 04/08/2022 imagi ng/di agnos tic resul t No observ ation record ed. [facility] (Xrays Only) [address] [facility], [place], [address], 04/11/2022 16:52:30 04/10/19 24 elect delaney dominguez am No observ ation record ed. dtrister In-Office Order Internal Use Only DO Not Attach Compendium DO Not Attach Compendium, Do Not Delete/merge, [id number] 04/10/2023 13:27:19 04/10/19 24 04/10/2023 huang dominguez am No observ ation record ed. BARCODE Not Available 2023 13:46:51 Result Notes None recorded. 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 11/07/2018 PERNELL herrera [facility], 9 09:04:11 Transient cerebral ischemia 545613327 Completed 11/07/2018 [facility]LL [facility]rera [facility], 9 09:04:13 Heart murmur 51269379 Completed 11/07/2018 [facility]LL [facility]rera [facility], 9 09:04:26 Disorder of cholesterol metabolism 453000353 Completed 11/07/2018 [facility]LL [facility]rera [facility], 9 09:04:06 Impacted cerumen 73321639 Completed 11/07/2018 PER[facility]LL herrera [facility], 9 09:04:09 Pain of shoulder region 45935362 Completed 11/07/2018 PER[facility]LL herrera [facility], 9 09:04:22 Adult health examination Completed 201611/07/2018 PERNELL herrera [facility], 9 09:04:15 Mixed hyperlipide matthew 626433609 Active 2019 Renita Moiarechiga [facility], 14:22:37 Problem Notes None recorded. Procedures Surgical History Date Name Laterality Status Provider Name and Address Organization Details Recorded Time 04/10/19 24 ECG completed Reid Santanada [facility], 04/10/2023 13:09:53 04/11/19 23 Rapid Strept Test completed [facility], 04/11/2022 17:00:55 12/31/19 22 Tetanus prophylaxis completed [facility], 12/30/2021 17:02:30 12/31/19 22 Intramuscular Injection completed [facility], 12/30/2021 17:02:19 08/24/19 22 ECG completed [facility], 08/23/2021 14:46:53 10/28/19 20 Flu vaccine Flucelvax Quad completed GITA LAND [facility], 10/28/2019 10:08:48 01/28/20 17 Rapid Strept Test completed Brinda Garza [facility], 01/27/2017 13:44:41 12/13/19 17 ECG completed [facility], 12/12/2016 20:06:38 04/22/19 17 PAP smear completed Rose Gillespie [facility], 04/21/2016 13:07:01 12/15/19 16 [facility]ax [facility] 12/15/2015 10:38:52 12/15/19 16 Intramuscular Injection completed [facility], 12/15/2015 10:39:08 02/04/20 15 Pneumonia vaccine completed Aida Franco [facility], 02/03/2015 11:42:36 01/28/20 15 Flu vaccine Flucelvax Quad completed Renita [facility], 01/27/2015 11:38:59 01/28/20 15 Cerumen Removal completed [facility], 01/27/2015 11:38:45 12/16/19 09 Date of Last Colonoscopy completed [facility], 01/01/2015 15:14:51 [facility] 15:03:34 Orthopaedic Surgery completed [facility], 01/01/2015 15:03:34 Imaging Results None recorded. Procedure Notes None recorded. Medical Equipment None Reported. Allergies Allergen ID Allergen Name Allergen Category Reaction Reaction Severity Criticality Documentation Date Start Date Code Code System Note Provider Name and Address Organization Details Recorded Time 86207 Product containin g 3-hydroxy -3-methyl glutaryl- coenzyme A reductase inhibitor (product) medicatio n Not available Not available Not available 01/27/2015 17351 009 SNOMED Renitapresley Song [facility], 5 11:22:22 Medications Name Sig [...] Not Available Not Available Chlorasepti c Throat [place] 1.4 % aerosol Take 1 spray by mucous route for 10 days. 04/06 completed Not Available Not Available Not Available diclofenac 1 % topical gel USE DAILY NEEDED 2020 active Not Available Not Available Not [facility] 10 billion cell-200 mg chewable tablet [...] cm 99 /min 98.1 [degF] 33.5 kg/m2 22968.3 3 g 97 % 97 % 132 mm[Hg] 80 mm[Hg] Reid Hernandezzada [facility], 4 13:09:26 Date Recorded Body height Heart rate Body temperature Body mass index (BMI) Body weight Oxygen saturation Oxygen saturation in Arterial blood by Pulse oximetry Systolic blood pressure Diastolic blood pressure Provider Name and Address Organization Details Last Updated DateTime 3 149.86 cm 93 /min 98 [degF] 34.3 kg/m2 89710.3 4 g 94 % 94 % 130 mm[Hg] 74 mm[Hg] LAURA KAUFMAN [facility], 3 16:32:37 Date Recorded Body height Heart rate Body temperature Body mass index (BMI) Body weight Oxygen saturation Oxygen saturation in Arterial blood by Pulse oximetry Systolic blood pressure Diastolic blood pressure Provider Name and Address Organization Details Last Updated DateTime 3 149.86 cm 91 /min 97.4 [degF] 33.9 kg/m2 82865.5 2 g 97 % 97 % 138 mm[Hg] 92 mm[Hg] CRIS [facility], 3 15:19:10 Date Recorded Body height Heart rate Body temperature Body mass index (BMI) Body weight Oxygen saturation Oxygen saturation in Arterial blood by Pulse oximetry Systolic blood pressure Diastolic blood pressure Provider Name and Address Organization Details Last Updated DateTime 3 149.86 cm 87 /min 98.2 [degF] 33.4 kg/m2 55477.4 6 g 98 % 98 % 142 mm[Hg] 88 mm[Hg] CRIS [facility], 3 14:36:32 Date Recorded Systolic blood pressure Diastolic blood pressure Provider Name and Address Organization Details Last Updated DateTime 09/20/2022 120 mm[Hg] 70 mm[Hg] Renita Song [facility], 09/20/2022 15:04:37 Date Recorded Body height Heart rate Body temperature Body mass index (BMI) Body weight Oxygen saturation Oxygen saturation in Arterial blood by Pulse oximetry Systolic blood pressure Diastolic blood pressure Provider Name and Address Organization Details Last Updated DateTime 3 149.86 cm 81 /min 98 [degF] 33.1 kg/m2 70030.1 5 g 99 % 99 % 130 mm[Hg] 80 mm[Hg] LAURA HICKMANADO [facility], 3 11:04:48 Social History Question Answer Notes LastModified by Organizat ion Details LastModified Time Tobacco Smoking Status Never Smoker Not Available [facility] 11/29/2019 03:10:44 Have You Been To An [...] How Many Children Do You Have? 1 [id number] Information not available 11/29/2019 How Much Tobacco Do You Smoke? No [id number] Information not available 11/29/2019 Sex: Female Functional Status Question Answer Note LastModified by Organizat ion Details LastModified Time What is your level of alcohol consumption? Moderate [id number] Information not available 11/29/2019 Do you or have you ever used smokeless tobacco? 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 disability PTSD, arthriisrael s. [id number] Information not available 11/29/2019 Mental Status None [...] Bipolar disorder N Hyperthyroidism N Hyperipidemia N Lung Disease N Hypothyroidism N Depression N COPD N Pneumonia N [...] sensitivity N Headache (Tension) N Acne N Lyme disease N Hypertriglyceridemia N Hepatitis C N Anemia N Anemia B-12 defficiency N Back pain (thoracic OA) N Venous insufficiency N Heart Attack (NE) N Radiculopathy N Dyspepsia N Bleeding Disorder N CHF N Seizures/Epilepsy N Joints replacement N Ankle OA N Fingers OA N BPH N Wrist OA N Somatization N Carpal tunnel Syndrome N Urinary Tract Infection N Diverticulitis N CVA N Asthma N Hepatitis B N Neck [...] virus, trivalent, preservative 6 completed Not Available [facility] 03/02/2019 02:13:51 Tdap 2 completed Renita Song [facility], 12/30/2021 16:53:58 Past Encounters Encounter ID Performer Location Encounter Start Date Encounter Closed Date Diagnosis/Indication Diagnosis SNOMED-CT Code Diagnosis ICD10 Code Diagnosis Note [id number] Renita Song DO [address] [address] 01/01/2015 14:43:12 01/01/2015 15:46:24 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 Disorder o f rotator cuff 465898339 M75.81 Low back pain 591409088 M54.5 Posttrauma tic stress disorder 40644544 F43.10 Transient cerebral ischemia 882359415 G45.9 Adult heal th examination 653428414 Z00.01 Heart murmur 21372793 R0 1.1 [id number] Renita Song DO [facility] [address] [place] [address] 01/27/2015 10:39:12 01/27/2015 11:57:49 Disorder of cholesterol metabolism 355528075 E78.70 Impacted cerumen 4868863 6 H61.21 Administra tion of influenza vaccine 11944150 Z23 Pain of [facility] 48439879 M25.511 [id number] Renita Song [address] [address] 02/03/2015 11:05:17 02/03/2015 11:53:28 Active or passive immunization 421927179 Z23 [id number] [address] 12/15/2015 10:30:19 12/15/2015 10:40:41 Needs influenza immunization 832253082 Z23 [id number] Shu Salamanca NP [address] [address] 02/12/2016 12:54:14 02/12/2016 14:05:29 Cough 77563588 R05 Upper resp iratory infection 81677331 J06.9 Diarrhea 41370007 R19.[id number] [address] 03/03/2016 10:20:15 03/03/2016 10:59:19 Verruca vulgaris 09800567 B07.9 Foot pain 11913171 M79.6 72 see above, pain due to warts [id number] Renita Song [address] [address] 03/31/2016 10:25:37 03/31/2016 11:21:23 Adult health examination 382299445 Z00.00 declined mammo and colonoscop y Verruca plantaris 057925 08 B07.0 [id number] Shu Salamanca NP [facility] [address] [place] [address] 04/21/2016 12:56:56 04/21/2016 13:32:35 Screening for malignant neoplasm of cervix 142607043 Z12.4 Gynecologi c examination 22545779 Z01.419 [id number] Renita Song [address] [address] 12/12/2016 11:24:28 12/12/2016 12:37:34 Chest pain 53179067 R07.9 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 1 follow up the dentist for oral exam, Dr [place], [place] 9 [id number] Renita Song DO [address] [address] 04/06/2017 09:27:18 04/06/2017 10:50:03 Adult health examination 104281271 Z00.00 declined mammo and colonoscop y Depression screening 171 272303 Z13.89 Depressive disorder 3548 9007 F32.9 [id number] Renita Song DO [address] [address] 2018 10:51:16 2018 12:11:35 Adult health examination 293716990 Z00.00 declined mammo and colonoscop y Cataract 005550655 H26.9 Hearing loss 45917921 H9 1.90 [id number] Renita Moibill [address] [address] 10/01/2018 15:30:42 10/01/2018 16:00:51 Acute otitis media 4678246 H66.92 [id number] Renita Duncan [address] [address] 10/11/2018 10:25:33 10/11/2018 11:38:02 Acute otitis media 0215210 H66.92 Acute otitis externa 302 84239 H60.501 [id number] Domingo Song MD [address] [address] 10/22/2018 07:53:11 10/22/2018 08:20:17 Hearing loss 51905200 H91.91 Pain in throat 318274842 R07.0 [id number] Domingo Song MD [address] [address] 11/07/2018 09:00:29 11/07/2018 09:50:04 Traumatic effusion of joint of knee 443000403 M25.462 Contusion of chest 13741 004 S20.211A Contusion of finger of left hand 0913696277 6450465 S60.022A Shoulder joint pain 2679 24808 M25.519 [id number] Renita Song DO [address] [address] 04/22/2019 12:34:49 04/22/2019 16:00:13 Pain of right shoulder joint 1616458401 3941352 M25.511 Adult heal th examination 104481132 Z00.00 declined mammo and colonoscop y [id number] Renita Song DO [address] [address] 09/30/2019 13:42:30 10/09/2019 14:17:12 Mixed hyperlipidemia 835065361 E78.2 [id number] JONAH SANCHEZ [address] [address] 10/28/2019 09:48:33 10/28/2019 10:00:41 Needs influenza immunization 625858859 Z23 [id number] JONAH SANCHEZ [facility] [address] [place] [address] 11/27/2019 16:00:31 11/29/2019 14:07:53 Blepharitis 65349148 H01.9 Most likely blephariti s. Will use erythromyc in ointment and follow up should this not resolve in 7 days. Educated pt about medication , side effects and DDIs. Did offer ophthalmol ogy referral but patient declined. [id number] Renita Song DO [address] [address] 04/27/2020 11:03:05 04/27/2020 11:35:50 Adult health examination 617609726 Z00.00 Chronic dermatitis 77425 007 L30.9 chronci unstable progressiv e [id number] JONAH ASNCHEZ [address] [address] 06/01/2020 09:24:41 06/01/2020 09:56:34 Supraclavicular lymphadenopathy 956316864 R59.0 Acute, most likely due to immune response from COVID vaccine as this is listed as a side effect. However will order labs in conjunctio n with CBC, CMP from physical to ensure no acute abnormalit ies. F/u with US of neck. Educated patient about signs and symptoms in which to seek emergency medical attention or return for care. Emotional upset 45373043 5 R45.89 Acute, due to no sleep, lack of morning routine, nervous about lymphadeno sagar. Elevated BP. Advised to calm down. Will recheck BP at next office visit. Patient asymptomat ic. [id number] Renita PraterDO bill [address] [address] 08/23/2021 13:03:56 08/23/2021 14:50:42 Adult health examination 113556154 Z00.00 Depressive disorder 3548 9007 F32.9 chronic unstablead vised to go to ER if develops thoughts and plans of self harm [id number] Renita PraterDO bill [address] [address] 12/30/2021 16:06:44 12/30/2021 17:06:19 Requires a hepatitis A vaccination 617879072 Z28.39 Administra tion of diphtheria, pertussis, and tetanus vaccine 849825934 Z23 [id number] Renita Praterbill [address] [address] 04/07/2022 08:41:48 04/07/2022 09:21:10 Chronic cough 02925259 R05.3 chronic unstableun like due to bacterial agent [id number] Renita Praterbill [address] [address] 04/11/2022 15:52:13 04/11/2022 17:08:25 Acute pharyngitis 585870630 J02.9 acute unstablewa rm salt water gargletyle nol as needed Chronic cough 71268413 R 05.3 chronic stable improved w benzonatat e [id number] Renita Song DO [address] [address] 07/26/2022 15:17:28 07/26/2022 16:13:18 Fracture of distal end of fibula 159032615 S82.891A acute stable improvedpt compliant with home exercises [id number] Renita Song DO [address] [address] 09/20/2022 14:18:13 09/20/2022 15:13:51 Adult health examination 842519154 Z00.00 Mixed hyperlipidemia 267 164634 E78.2 [id number] Domingo Song MD [address] [address] 11/22/2022 10:40:33 11/22/2022 11:49:18 Abnormal vision 4450859 H54.7 [id number] Renita Song DO [address] [address] 04/10/2023 12:37:27 04/10/2023 14:07:02 Cataract of right eye 064735082 H26.9 chronic unstableme dically optimized for surgery Pre-surger y evaluation 966455311 Z01.818 chronic unstableme dically optimized for surgery Health Concerns Section Related Observation LastModified by Organization Detai ls LastModified Time None Recorded Concern Status LastModified by Organization Details LastModified Time None Recorded Advance Directives Directive None Recorded Payers Insurance Date Sequence Insurance Name Policy Number Policy Summers Covered Member ID Summers Member ID Guarantor Name 09/28/2023 1 [facility] [employer] [facility] - TYPE 1 (MEDICARE - MEDICAID REPLACEMENT) [id number] Ro Sheets [id number] Ro Sheets 07/16/[address] [facility] (MEDICARE REPLACEMENT/A DVANTAGE - PPO) [id number] Ro Sheets [id number] Ro Sheets Notes Date Note Type Note Provider Name [...] buffetno LOC+ headache but mild and infrequent [facility], 04/11/2022 17:03:47 07/26/2022 text/html pt here to follo w up for a distal fibula fractureortho notes revieweds/p boot, and lace up bracestill reports limited ROM, stiffness and mild paresthesia of the 2,3,4th toes with slight discolorationshe is able to weight bare and ambulate [facility], 07/26/2022 15:58:00 09/20/2022 text/html Annual Wellness VisitReported [...] the bathroom/shower; good lighting in the home [facility], 09/20/2022 15:04:54 11/22/2022 text/html Abnormal vision;History of cataract surgery Domingo Song MD [address] [place] [address], [address], [facility], 11/30/2022 10:40:25 04/10/2023 text/html pt here for pre operative evaluation for cataract surgeryno previous adverse effects from anesthesiatoday pt denies chest pain, or shortness of breathlabs done and reviewed w pt [facility], 04/10/2023 13:38:44 OBGyn Episode No OBEpisode recorded.
== END 2024-07-25 13:32 | disposition home or self-care (01) ==
LOC: HO.MAMMO 13:31
PROVIDERS: PCP Internal Medicine; Visit Provider Internal Medicine
DX: Z13.820 Encounter for screening for osteoporosis (principal); Z78.0 Asymptomatic menopausal state; R01.1 Cardiac murmur, unspecified
CPT/HCPCS: 77080; 93306

== ENCOUNTER → 2024-07-25 14:00 | Outpatient (BNV) | payer MEDICARE, SELFPAY | PROVIDERS: PCP Internal Medicine; Visit Provider Radiology Diagnostic Radiology | DX: E28.39 Other primary ovarian failure (principal) | CPT/HCPCS: 77080 ==

== ENCOUNTER → 2024-07-25 14:25 | Outpatient (BNV) | payer MEDICARE, SELFPAY | PROVIDERS: PCP Internal Medicine; Visit Provider Internal Medicine Cardiovascular Disease | DX: Z78.0 Asymptomatic menopausal state (principal) | CPT/HCPCS: 93306 ==

== ENCOUNTER 2024-11-21 14:10 | Outpatient (REF) | payer MEDICARE, SELFPAY ==
--- NOTE | ~2024-11-21 | XR_ITS ---
EXAMINATION: XR HIP, LEFT CLINICAL INFORMATION: M25.552 - Pain in left hip COMPARISON: None available. TECHNIQUE: Two views of the left hip. FINDINGS: There is severe superior lateral joint space narrowing in the left hip with subchondral sclerosis, cystic change, and marginal osteophytes. There is also appositional bone growth along the medial femoral neck extending down to the lesser trochanter. There is mild narrowing and sclerosis in the left SI joint. There is sclerosis of the lower. Symphysis joint. XR/XR hip LT min 2V IMPRESSION: Severe left hip osteoarthritis. Electronically signed by: Joshua Romreo MD 11/21/2024 02:58 PM EDT
== END 2024-11-21 14:11 | disposition home or self-care (01) ==
LOC: HO.XRAY 14:10
PROVIDERS: PCP Internal Medicine; Visit Provider Internal Medicine
DX: M25.552 Pain in left hip (principal)
CPT/HCPCS: 73502

== ENCOUNTER → 2024-11-21 14:15 | Outpatient (BNV) | payer MEDICARE, SELFPAY | PROVIDERS: PCP Internal Medicine; Visit Provider Radiology Diagnostic Radiology | DX: M16.12 Unilateral primary osteoarthritis, left hip (principal) | CPT/HCPCS: 73502 ==

== ENCOUNTER 2024-12-16 08:03 | Outpatient (REF) | payer MEDICARE, SELFPAY ==
--- OUTSIDE RECORDS SUMMARY | 2024-12-16 08:15 | XMS_ITS | Clinical Summary ---
Author Organization [facility] Address [address] [place] [address] Care Team Providers Care Web Support Engineer Name Role Phone Renita Song DO Primary Care Provider [phone] Allergies Active Allergy Reactions Criticality Noted Date Comments Cottonseed Unknown Gradzxa-Nsn-Ljm Reductase Inhibitors Dizziness 08/23/2018 Medications aspirin 325 [...] USE DAILY NEEDED 2 9 Active FLUAD 4592-1688, 65 YR UP,,PF, injection TO BE ADMINISTERED [...] COVID-19 Ag Home Test kit REFER TO [employer] INCLUDED IN PACKAGING 2 Active erythromycin [...] Influenza, High Dose Seasona l, Preservative Free (FLUZONE HIGH-DOSE) 12/04/2018,11/30/2016 Influenza, High Dose Seasona l, Quadrivalent PF 10/26/2021 10/26/2022 Influenza, Injectable, Quadr ivalent Preservative Free 11/07/2020 Influenza, Trivalent, Adjuva nted, PF (FLUAD) 03/11/2018 Influenza, Trivalent, MDV, Injectable 12/15/2015 Pneumococcal [...] 86 07/26/2022 1:05 PM EDT Temperature 37.1 C (98.8 F) 07/26/2022 1:05 PM EDT Respiratory Rate 18 07/26/2022 1:05 PM EDT [...] Zoster Vaccines (2 of 3) 11/11/2016 09/16/2016 Alcohol/Substance Use Screening 02/14/2024 Depression Screening and Follow-Up 02/14/2024 Health Care Proxy Review 02/14/2024 Social Drivers of Health Annual Screening 02/14/2024 COVID-19 Vaccine ( season) 2024 11/17/2021, 05/24/2021, 12/17/2020, Additional history exists Influenza Vaccine (#1) 2024 2, 11/07/2020, 12/04/2018, Additional history exists RSV Vaccine (60+ years old and patients) (1 - 1-dose 75+ series) 2025 DTaP,Tdap,and Td Vaccines (2 - Td or Tdap) 12/31/2031 12/30/2021 Hepatitis B Vaccines Aged Out No long er eligible based on patient's age to complete this topic Insurance Care Teams Web Support Engineer Relationship Specialty Start Date End Date Renita Song DO PCP - General 09/01/16
[2024-12-16 09:37] LABS: Alanine Aminotransferase 20 U/L (0-31); Albumin Level 4.6 g/dL (3.5-5.0); Alkaline Phosphatase 123 U/L (39-117); Anion Gap 10 (12-20); Aspartate Amino Transferase 25 U/L (5-31); Blood Urea Nitrogen 12 mg/dL (9-16); Calcium 9.7 mg/dL (8.4-10.2); Carbon Dioxide 31 mmol/L (22-29); Chloride 108 mmol/L (96-108); Cholesterol 254 mg/dL (<200); Estimated Glomerular Filt Rate > 60; HDL Cholesterol 58 mg/dL (>40); Potassium 4.0 mmol/L (3.3-5.1); Sodium 145 mmol/L (135-145); Total Protein 7.2 g/dL (6.5-8.0); Triglycerides 129 mg/dL (<150)
== END 2024-12-16 08:04 | disposition home or self-care (01) ==
LOC: HO.LAB 08:03
PROVIDERS: Visit Provider Internal Medicine
DX: E78.00 Pure hypercholesterolemia, unspecified (principal); E78.5 Hyperlipidemia, unspecified
CPT/HCPCS: 36415; 80053; 80061